=== PATIENT | male | born 1995 | race Caucasian/White ===

== ENCOUNTER 2016-12-30 15:17 | Inpatient (IN) | payer BC ==
[~2016-12-30] VITALS: Ht 182.9 cm; Wt 83.5 kg
[2016-12-30] MEDS ORDERED: IV NORMAL SALINE 1000ML BAG 1,000 ML IV ONE ×2 (15:45→17:30)
[2016-12-30] MEDS ORDERED: 0.9 % SODIUM CHLORIDE 10 ML DISP.SYRIN. IV PRN (15:45)
[2016-12-30] MEDS ORDERED: ONDANSETRON PF 4 MG/2 ML VIAL. IV PRN ×3 (15:45→19:00)
[2016-12-30] MEDS ORDERED: MORPHINE SULFATE 2 MG/ML DISP.SYRIN. IV ONE (15:45)
[2016-12-30] MEDS ORDERED: ONDANSETRON PF 4 MG/2 ML VIAL. ONE (16:06)
[2016-12-30] MEDS ORDERED: MORPHINE SULFATE 2 MG/ML DISP.SYRIN. ONE (16:06)
[2016-12-30 16:08] LABS: BASO % 0 % (0-3); EOS % 0 % (0-3); HEMATOCRIT 52.7 % (39.0-53.0); HEMOGLOBIN 18.2 g/dL (13.0-17.5); LYMPH # 1.6 x10^3/uL (1.0-4.8); LYMPH % 9 % (24-48); MEAN CORPUSCULAR HEMOGLOBIN 29 pg (25-35); MEAN CORPUSCULAR HGB CONC 35 g/dL (31-37); MEAN CORPUSCULAR VOLUME 84 fL (79-100); MONO % 9 % (0-9); NEUT % 82 % (31-73); PLATELET COUNT 346 x10^3/uL (140-400); RED BLOOD COUNT 6.25 x10^6/uL (4.30-5.70); RED CELL DISTRIBUTION WIDTH 13.2 % (11.5-14.5); WHITE BLOOD COUNT 17.5 x10^3/uL (4.0-11.0)
[2016-12-30 16:20] LABS: CALCIUM 9.8 mg/dL (8.5-10.1); CREATININE 1.2 mg/dL (0.7-1.3); GFR 77.2; POTASSIUM 3.4 mmol/L (3.5-5.1)
[2016-12-30 16:26] LABS: ALBUMIN 3.5 g/dL (3.4-5.0); ALBUMIN/GLOBULIN RATIO 0.7 (1.0-1.7); TOTAL BILIRUBIN 0.6 mg/dL (0.2-1.0); TOTAL PROTEIN 8.7 g/dL (6.4-8.2)
--- NOTE | 2016-12-30 17:14 | PHYS DOC ---
Past Medical History Past Medical History: No Pertinent History Past Surgical History: No Surgical History Alcohol Use: None Drug Use: Marijuana Adult General Chief Complaint Chief Complaint: OTHER COMPLAINTS HPI HPI Patient is a 21 year old MALE who presents with FEVERS UP TO 101, and sores in genital area now spreading on body, Tried out patient antibiotics and Valtrex and now worse Review of Systems Review of Systems Constitutional: YES fever or chills [] Eyes: Denies change in visual acuity, redness, or eye pain [] HENT: severe sore throat with "sores" Respiratory: cough with yellow phlem Cardiovascular: No additional information not addressed in HPI [] GI: Denies abdominal pain, nausea, vomiting, bloody stools or diarrhea [] : Denies dysuria or hematuria [] Musculoskeletal: Denies back pain or joint pain [] Integument: Denies rash or skin lesions [] Neurologic: Denies headache, focal weakness or sensory changes [] Endocrine: Denies polyuria or polydipsia [] Current Medications Current Medications Current Medications Medications (Trade) Dose Ordered Sig/Gabriel Start Time Stop Time Status Last Admin Dose Admin Ceftriaxone Sodium 50 ml @ 100 mls/hr 1X ONCE 12/30/16 17:15 12/30/16 17:44 DC 12/30/16 17:46 100 MLS/HR Morphine Sulfate 2 mg STK-MED ONCE 12/30/16 16:06 12/30/16 16:07 DC Ondansetron HCl (Zofran) 4 mg STK-MED ONCE 12/30/16 16:06 12/30/16 16:07 DC Sodium Chloride 1,000 ml @ 1,000 mls/hr 1X ONCE 12/30/16 17:30 12/30/16 18:29 DC 12/30/16 17:46 1,000 MLS/HR Sodium Chloride (Normal Saline Flush) 3 ml QSHIFT PRN 12/30/16 15:45 Vancomycin HCl 2 gm/Sodium Chloride 500 ml @ 250 mls/hr 1X ONCE 12/30/16 17:15 12/30/16 19:14 DC Allergies Allergies Allergies Coded Allergies Type Severity Reaction Last Updated Verified No Known Drug Allergies 12/30/16 No Physical Exam Physical Exam Constitutional: Well developed, well nourished, no acute distress, non-toxic appearance. [] HENT: Normocephalic, atraumatic, bilateral external ears normal, oropharynx moist, no oral exudates, nose normal. [] Eyes: PERRLA, EOMI, conjunctiva normal, no discharge. [] Neck: Normal range of motion, no tenderness, supple, no stridor. [] Cardiovascular:Heart rate regular rhythm, no murmur [] Lungs & Thorax: Bilateral breath sounds clear to auscultation [] Abdomen: Bowel sounds normal, soft, no tenderness, no masses, no pulsatile masses. [] Skin: Warm, dry, no erythema, no rash. [] Back: No tenderness, no CVA tenderness. [] Extremities: No tenderness, no cyanosis, no clubbing, ROM intact, no edema. [] Neurologic: Alert and oriented X 3, normal motor function, normal sensory function, no focal deficits noted. [] Psychologic: Affect normal, judgement normal, mood normal. [] Current Patient Data Vital Signs Vital Signs Date Time Temp Pulse Resp B/P (MAP) Pulse Ox O2 Delivery O2 Flow Rate FiO2 12/30/16 15:30 113 18 153/85 (107) 97 Room Air 12/30/16 15:20 98.8 98.8 Lab Values Laboratory Tests Test 12/30/16 15:55 12/30/16 17:10 White Blood Count 17.5 x10^3/uL (4.0-11.0) H Red Blood Count 6.25 x10^6/uL (4.30-5.70) H Hemoglobin 18.2 g/dL (13.0-17.5) H Hematocrit 52.7 % (39.0-53.0) Mean Corpuscular Volume 84 fL (79-100) Mean Corpuscular Hemoglobin 29 pg (25-35) Mean Corpuscular Hemoglobin Concent 35 g/dL (31-37) Red Cell Distribution Width 13.2 % (11.5-14.5) Platelet Count 346 x10^3/uL (140-400) Neutrophils (%) (Auto) 82 % (31-73) H Lymphocytes (%) (Auto) 9 % (24-48) L Monocytes (%) (Auto) 9 % (0-9) Eosinophils (%) (Auto) 0 % (0-3) Basophils (%) (Auto) 0 % (0-3) Neutrophils # (Auto) 14.3 x10^3uL (1.8-7.7) H Lymphocytes # (Auto) 1.6 x10^3/uL (1.0-4.8) Monocytes # (Auto) 1.5 x10^3/uL (0.0-1.1) H Eosinophils # (Auto) 0.0 x10^3/uL (0.0-0.7) Basophils # (Auto) 0.0 x10^3/uL (0.0-0.2) Sodium Level 135 mmol/L (136-145) L Potassium Level 3.4 mmol/L (3.5-5.1) L Chloride Level 95 mmol/L (98-107) L Carbon Dioxide Level 20 mmol/L (21-32) L Anion Gap 20 (6-14) H Blood Urea Nitrogen 11 mg/dL (8-26) Creatinine 1.2 mg/dL (0.7-1.3) Estimated GFR (Cockcroft-Gault) 77.2 BUN/Creatinine Ratio 9 (6-20) Glucose Level 99 mg/dL (70-99) Lactic Acid Level 2.5 mmol/L (0.4-2.0) H Calcium Level 9.8 mg/dL (8.5-10.1) Total Bilirubin 0.6 mg/dL (0.2-1.0) Aspartate Amino Transferase (AST) 13 U/L (15-37) L Alanine Aminotransferase (ALT) 15 U/L (16-63) L Alkaline Phosphatase 79 U/L (46-116) Total Protein 8.7 g/dL (6.4-8.2) H Albumin 3.5 g/dL (3.4-5.0) Albumin/Globulin Ratio 0.7 (1.0-1.7) L Urine Collection Type Void Urine Color Mary Ann Urine Clarity Clear Urine pH 6.0 Urine Specific [place] >=1.030 Urine Protein 30 mg/dL (NEG-TRACE) Urine Glucose (UA) Negative mg/dL (NEG) Urine Ketones (Stick) >=80 mg/dL (NEG) Urine Blood Negative (NEG) Urine Nitrite Negative (NEG) Urine Bilirubin Moderate (NEG) Urine Urobilinogen Dipstick 1.0 mg/dL (0.2 mg/dL) Urine Leukocyte Esterase Small (NEG) Urine RBC 0 /HPF (0-2) Urine WBC 1-4 /HPF (0-4) Urine Squamous Epithelial Cells Occ /LPF Urine Bacteria 0 /HPF (0-FEW) Urine Hyaline Casts Few /HPF Urine Mucus Marked /LPF Laboratory Tests 12/30/16 15:55 Laboratory Tests 12/30/16 15:55 EKG EKG [] Radiology/Procedures Radiology/Procedures [] Impressions: Scrotal Cellulitis, Genital Herpes Possible MRSA Course & Med Decision Making Course & Med Decision Making Pertinent Labs and Imaging studies reviewed. (See chart for details) [] Dragon Disclaimer Dragon Disclaimer This electronic medical record was generated, in whole or in part, using a voice recognition dictation system. Departure Departure Referrals: EDUARDO SAMPSON MD (PCP) DANICA CHAUDHARY MD Dec 30, 2016 17:14
[2016-12-30] MEDS ORDERED: VANCOMYCIN 2 GM in IV NORMAL SALINE 500ML BAG 500 ML IV ONE (17:15)
[2016-12-30 17:29] LABS: BILIRUBIN,URINE MODERATE (NEG); GLUCOSE,URINE NEGATIVE (NEG); NITRITE,URINE NEGATIVE (NEG); PROTEIN,URINE 30 mg/dL (NEG-TRACE)
[2016-12-30 17:39] LABS: BACTERIA,URINE 0 /HPF (0-FEW); RBC,URINE 0 /HPF (0-2); SQUAMOUS EPITHELIAL CELL,UR OCC /LPF
[2016-12-30] MEDS ORDERED: PIPERACILLIN/TAZOBACTAM 4.5 GM in IV NORMAL SALINE 100ML 100 ML IV ONE (18:00)
[2016-12-30] MEDS: MORPHINE SULFATE 2 MG/ML DISP.SYRIN. IV PRN ×2 (18:19→21:06)
--- NOTE | 2016-12-30 18:57 | PDOC1 ---
History and Physical Current Problem List Problem List Problems Medical Problems: (1) Cellulitis of scrotum Status: Acute (2) Herpes genitalia Status: Acute (3) Leukocytosis Status: Acute Current Medications Current Medications Current Medications Medications (Trade) Dose Ordered Sig/Gabriel Start Time Stop Time Status Last Admin Dose Admin Ceftriaxone Sodium 50 ml @ 100 mls/hr 1X ONCE 12/30/16 17:15 12/30/16 17:44 DC 12/30/16 17:46 100 MLS/HR Morphine Sulfate 2 mg PRN Q2HR PRN 12/30/16 18:00 12/31/16 17:59 12/30/16 18:19 2 MG Ondansetron HCl (Zofran) 4 mg PRN Q8HRS PRN 12/30/16 18:00 12/31/16 17:59 Piperacillin Sod/ Tazobactam Sod 4.5 gm/Sodium Chloride 100 ml @ 200 mls/hr Q6HRS 12/31/16 00:00 Sodium Chloride 1,000 ml @ 1,000 mls/hr 1X ONCE 12/30/16 17:30 12/30/16 18:29 DC 12/30/16 17:46 1,000 MLS/HR Sodium Chloride (Normal Saline Flush) 3 ml QSHIFT PRN 12/30/16 15:45 Vancomycin HCl (Vanco Per Pharmacy) 1 each PRN DAILY PRN 12/30/16 18:00 Vancomycin HCl 2 gm/Sodium Chloride 500 ml @ 250 mls/hr 1X ONCE 12/30/16 17:15 12/30/16 19:14 Allergies Allergies Allergies Coded Allergies Type Severity Reaction Last Updated Verified No Known Drug Allergies 12/30/16 No ROS Review of System CONSTITUTIONAL: No fever or chills EYES: No recent changes SKIN: No rash or itching CARDIOVASCULAR: No chest pain, syncope, palpitations, or edema RESPIRATORY: No SOB or cough GASTROINTESTINAL: No nausea, vomiting or abdominal pain NEUROLOGICAL: No headaches or weakness ENDOCRINE: No cold or heat intolerance GENITOURINARY: No urgency or frequency of urination MUSCULOSKELETAL: No back pain or joint pain LYMPHATICS: No enlarged lymph nodes PSYCHIATRIC: No anxiety or depression Physical Exam Physical Exam GEN.: No apparent distress. Alert and oriented. HEENT: Head is normocephalic, atraumatic NECK: Supple. no JVD LUNGS: Clear to auscultation. normal airflow. HEART: RRR, S1, S2 present. Peripheral pulses intact ABDOMEN: Soft, nontender. Positive bowel sounds. genitalia: ulcers on scrotum both side, with central dark color, erythema surrounding it. EXTREMITIES: Without any cyanosis. NEUROLOGIC: Normal speech, normal tone PSYCHIATRIC: Normal affect, normal mood. Mouth: numerous ulceration on palate Vitals Vitals Vital Signs Date Time Temp Pulse Resp B/P (MAP) Pulse Ox O2 Delivery O2 Flow Rate FiO2 12/30/16 18:00 105 18 118/62 (80) 98 12/30/16 15:30 Room Air 12/30/16 15:20 98.8 98.8 Labs Labs Laboratory Tests Test 12/30/16 15:55 12/30/16 17:10 White Blood Count 17.5 x10^3/uL (4.0-11.0) Red Blood Count 6.25 x10^6/uL (4.30-5.70) Hemoglobin 18.2 g/dL (13.0-17.5) Hematocrit 52.7 % (39.0-53.0) Mean Corpuscular Volume 84 fL (79-100) Mean Corpuscular Hemoglobin 29 pg (25-35) Mean Corpuscular Hemoglobin Concent 35 g/dL (31-37) Red Cell Distribution Width 13.2 % (11.5-14.5) Platelet Count 346 x10^3/uL (140-400) Neutrophils (%) (Auto) 82 % (31-73) Lymphocytes (%) (Auto) 9 % (24-48) Monocytes (%) (Auto) 9 % (0-9) Eosinophils (%) (Auto) 0 % (0-3) Basophils (%) (Auto) 0 % (0-3) Neutrophils # (Auto) 14.3 x10^3uL (1.8-7.7) Lymphocytes # (Auto) 1.6 x10^3/uL (1.0-4.8) Monocytes # (Auto) 1.5 x10^3/uL (0.0-1.1) Eosinophils # (Auto) 0.0 x10^3/uL (0.0-0.7) Basophils # (Auto) 0.0 x10^3/uL (0.0-0.2) Sodium Level 135 mmol/L (136-145) Potassium Level 3.4 mmol/L (3.5-5.1) Chloride Level 95 mmol/L (98-107) Carbon Dioxide Level 20 mmol/L (21-32) Anion Gap 20 (6-14) Blood Urea Nitrogen 11 mg/dL (8-26) Creatinine 1.2 mg/dL (0.7-1.3) Estimated GFR (Cockcroft-Gault) 77.2 BUN/Creatinine Ratio 9 (6-20) Glucose Level 99 mg/dL (70-99) Lactic Acid Level 2.5 mmol/L (0.4-2.0) Calcium Level 9.8 mg/dL (8.5-10.1) Total Bilirubin 0.6 mg/dL (0.2-1.0) Aspartate Amino Transf (AST/SGOT) 13 U/L (15-37) Alanine Aminotransferase (ALT/SGPT) 15 U/L (16-63) Alkaline Phosphatase 79 U/L (46-116) Total Protein 8.7 g/dL (6.4-8.2) Albumin 3.5 g/dL (3.4-5.0) Albumin/Globulin Ratio 0.7 (1.0-1.7) Urine Collection Type Void Urine Color Mary Ann Urine Clarity Clear Urine pH 6.0 Urine Specific [place] >=1.030 Urine Protein 30 mg/dL (NEG-TRACE) Urine Glucose (UA) Negative mg/dL (NEG) Urine Ketones (Stick) >=80 mg/dL (NEG) Urine Blood Negative (NEG) Urine Nitrite Negative (NEG) Urine Bilirubin Moderate (NEG) Urine Urobilinogen Dipstick 1.0 mg/dL (0.2 mg/dL) Urine Leukocyte Esterase Small (NEG) Urine RBC 0 /HPF (0-2) Urine WBC 1-4 /HPF (0-4) Urine Squamous Epithelial Cells Occ /LPF Urine Bacteria 0 /HPF (0-FEW) Urine Hyaline Casts Few /HPF Urine Mucus Marked /LPF Laboratory Tests Test 12/30/16 15:55 12/30/16 17:10 White Blood Count 17.5 x10^3/uL (4.0-11.0) Red Blood Count 6.25 x10^6/uL (4.30-5.70) Hemoglobin 18.2 g/dL (13.0-17.5) Hematocrit 52.7 % (39.0-53.0) Mean Corpuscular Volume 84 fL (79-100) Mean Corpuscular Hemoglobin 29 pg (25-35) Mean Corpuscular Hemoglobin Concent 35 g/dL (31-37) Red Cell Distribution Width 13.2 % (11.5-14.5) Platelet Count 346 x10^3/uL (140-400) Neutrophils (%) (Auto) 82 % (31-73) Lymphocytes (%) (Auto) 9 % (24-48) Monocytes (%) (Auto) 9 % (0-9) Eosinophils (%) (Auto) 0 % (0-3) Basophils (%) (Auto) 0 % (0-3) Neutrophils # (Auto) 14.3 x10^3uL (1.8-7.7) Lymphocytes # (Auto) 1.6 x10^3/uL (1.0-4.8) Monocytes # (Auto) 1.5 x10^3/uL (0.0-1.1) Eosinophils # (Auto) 0.0 x10^3/uL (0.0-0.7) Basophils # (Auto) 0.0 x10^3/uL (0.0-0.2) Sodium Level 135 mmol/L (136-145) Potassium Level 3.4 mmol/L (3.5-5.1) Chloride Level 95 mmol/L (98-107) Carbon Dioxide Level 20 mmol/L (21-32) Anion Gap 20 (6-14) Blood Urea Nitrogen 11 mg/dL (8-26) Creatinine 1.2 mg/dL (0.7-1.3) Estimated GFR (Cockcroft-Gault) 77.2 BUN/Creatinine Ratio 9 (6-20) Glucose Level 99 mg/dL (70-99) Lactic Acid Level 2.5 mmol/L (0.4-2.0) Calcium Level 9.8 mg/dL (8.5-10.1) Total Bilirubin 0.6 mg/dL (0.2-1.0) Aspartate Amino Transf (AST/SGOT) 13 U/L (15-37) Alanine Aminotransferase (ALT/SGPT) 15 U/L (16-63) Alkaline Phosphatase 79 U/L (46-116) Total Protein 8.7 g/dL (6.4-8.2) Albumin 3.5 g/dL (3.4-5.0) Albumin/Globulin Ratio 0.7 (1.0-1.7) Urine Collection Type Void Urine Color Mary Ann Urine Clarity Clear Urine pH 6.0 Urine Specific [place] >=1.030 Urine Protein 30 mg/dL (NEG-TRACE) Urine Glucose (UA) Negative mg/dL (NEG) Urine Ketones (Stick) >=80 mg/dL (NEG) Urine Blood Negative (NEG) Urine Nitrite Negative (NEG) Urine Bilirubin Moderate (NEG) Urine Urobilinogen Dipstick 1.0 mg/dL (0.2 mg/dL) Urine Leukocyte Esterase Small (NEG) Urine RBC 0 /HPF (0-2) Urine WBC 1-4 /HPF (0-4) Urine Squamous Epithelial Cells Occ /LPF Urine Bacteria 0 /HPF (0-FEW) Urine Hyaline Casts Few /HPF Urine Mucus Marked /LPF VTE Prophylaxis Ordered VTE Prophylaxis Devices: Contraindicated VTE Pharmacological Prophylaxi: Contraindicated ANJELICA SUNG MD Dec 30, 2016 18:57
[2016-12-30] MEDS ORDERED: ALBUTEROL SULFATE 2.5 MG/3 ML NEBU. NEB PRN (19:00)
[2016-12-30] MEDS ORDERED: hydrALAZINE 20 MG/ML VIAL. IVP PRN (19:00)
[2016-12-30] MEDS ORDERED: HYDROmorphone 2 MG/ML VIAL IM ONE (19:30)
[2016-12-30 20:15] VITALS: BP 117/73
[2016-12-30] MEDS: HYDROcodone/APAP 5/325MG 1 TAB TABLET PO PRN (21:10)
[2016-12-30] MEDS: VANCOMYCIN PER PHARMACY MC PRN (21:32)
[2016-12-30 23:22] VITALS: BP 125/76
[2016-12-30] MEDS ORDERED: METR500T8 PO (23:37)
[2016-12-30] MEDS ORDERED: DOXY100C2 PO (23:37)
[2016-12-30] MEDS ORDERED: VALA10005 PO (23:37)
[2016-12-31] MEDS: MORPHINE SULFATE 2 MG/ML DISP.SYRIN. IV PRN ×4 (00:13→08:15)
[2016-12-31] MEDS: PIPERACILLIN/TAZOBACTAM 4.5 GM in IV NORMAL SALINE 100ML 100 ML IV SCH ×5 (00:15→23:22)
[2016-12-31] MEDS: IV NORMAL SALINE 1000ML BAG 1,000 ML IV SCH ×2 (00:18→13:35)
--- NOTE | 2016-12-31 01:22 | HP ---
ADMIT DATE: 12/30/2016 CHIEF COMPLAINT: Multiple sores on the body. HISTORY OF PRESENT ILLNESS: A 21-year-old old male patient with no prior significant medical problem presented to the ER with complaints of fever and multiple sores on his body. The patient recently visited [place]; however, he denies any outside activity. He was staying inside and denies any sick contacts or any other travel history of ticks or mite bites. The patient noted to have vesiculopapular lesions on his scrotal area which has been turning colors. Center of the lesion has been turned to black with surrounding erythema and redness and pain. He had 3 or 4 lesions in the scrotal area including some redness in his glans penis region. The patient also noted to have increased mouth sores which have been painful for last couple of days. He presented to the ER with complaints of intractable pain. The patient tried some oral antibiotics outside the hospital, however they did not improve. In fact, his symptoms are getting worse. He denies any sexual contact with unknown people and he has been having intercourse with one single person for the last one year and last sexual intercourse was 2 weeks ago. His partner is very healthy and no illness noted. PAST MEDICAL HISTORY: None. PAST SURGICAL HISTORY: None. PERSONAL HISTORY: No smokes. Occasional THC. No alcohol use. No drug abuse. FAMILY HISTORY: Denies any cancers or any significant medical conditions. REVIEW OF SYSTEMS: and PHYSICAL EXAM: Pl see my electronic HP LABORATORY DATA: CBC: WBC is 17.5, hemoglobin is 18.2, MCV is 84, MCHC 35, platelets 346. Chemistry: Sodium 135, potassium 3.4, chloride is 95, carbon dioxide 20, gap is 20, bilirubin is 0.6, AST 13, ALT 15, lactic acid 2.5. Urine, specific gravity 1.030, nitrites negative, leukocyte esterase is small, bacteria few. IMAGING STUDIES: Chest x-ray preliminary report pending. ASSESSMENT: 1. Multiple vesiculopapular rashes with cellulitis on scrotum and oral mucosa 2. Rash on glans penis. 3. Hypokalemia. 4. Leukocytosis. 5. Metabolic acidosis. 6. Suspected genital herpes. 7. Dehydration. PLAN: 1. He has been receiving broad-spectrum antibiotics. Restart vancomycin and Zosyn. We will continue antibiotics for now and consult Infectious Disease. 2. Blood cultures, urine cultures obtained in the ER. Pain has been not controlled. He has been placed on 2 mg IV morphine q. 2 hours with Lortab p.r.n. later changed to Dilaudid. 3. Chest x-ray is pending. 4. Continue IV hydration at 100 mL/hour. 5. Plan discussed with patient and mother at this time. He will continue antibiotics. ANJELICA SUNG MD DR: THERESA/christoph JOB#: [id number] / [id number] OLIVA
[2016-12-31] MEDS ORDERED: LIDOCAINE 2% VISCOUS 15 ML SOLUTION. SWSW PRN (01:30)
[2016-12-31 03:30] VITALS: BP 117/71
[2016-12-31] MEDS: HYDROcodone/APAP 5/325MG 1 TAB TABLET PO PRN ×3 (04:22→20:57)
[2016-12-31] MEDS: VANCOMYCIN 1.25 GM in IV NORMAL SALINE 250ML 250 ML IV SCH ×3 (04:26→21:00)
[2016-12-31 05:12] LABS: BASO # 0.1 x10^3/uL (0.0-0.2); BASO % 1 % (0-3); EOS % 0 % (0-3); HEMATOCRIT 45.7 % (39.0-53.0); HEMOGLOBIN 15.1 g/dL (13.0-17.5); LYMPH # 2.5 x10^3/uL (1.0-4.8); LYMPH % 18 % (24-48); MEAN CORPUSCULAR HEMOGLOBIN 28 pg (25-35); MEAN CORPUSCULAR HGB CONC 33 g/dL (31-37); MEAN CORPUSCULAR VOLUME 86 fL (79-100); MONO % 10 % (0-9); NEUT % 72 % (31-73); PLATELET COUNT 276 x10^3/uL (140-400); RED BLOOD COUNT 5.32 x10^6/uL (4.30-5.70); RED CELL DISTRIBUTION WIDTH 13.1 % (11.5-14.5); WHITE BLOOD COUNT 14.3 x10^3/uL (4.0-11.0)
[2016-12-31 05:43] LABS: CALCIUM 8.2 mg/dL (8.5-10.1); CREATININE 1.1 mg/dL (0.7-1.3); GFR 85.3; POTASSIUM 3.2 mmol/L (3.5-5.1)
[2016-12-31 07:00] VITALS: BP 129/74
[2016-12-31] MEDS ORDERED: ACETAMINOPHEN 650 MG SUPP.RECT. PR PRN (08:45)
[2016-12-31] MEDS: HYDROmorphone 2 MG/ML VIAL IV PRN ×8 (08:53→22:59)
[2016-12-31] MEDS: ACETAMINOPHEN 325 MG TABLET. PO PRN ×3 (08:58→23:07)
--- NOTE | 2016-12-31 09:04 | RAD ---
EXAM: Chest 2 views. HISTORY: Weakness, dizziness, fever. COMPARISON: None. FINDINGS: Frontal and lateral views of the chest are obtained. There are no confluent infiltrates. There is no pneumothorax or pleural effusion. The heart is not enlarged. IMPRESSION: 1. No confluent infiltrates.
[2016-12-31 11:00] VITALS: BP 124/74
[2016-12-31 11:13] LABS: NEGATIVE OBC STREP NEG; POSITIVE OBC STREP POS
[2016-12-31] MEDS ORDERED: POTASSIUM CHLORIDE 40 MEQ in IV DEXTROSE 5% 1,000 ML IV ONE (12:00)
--- NOTE | 2016-12-31 12:58 | PDOC ---
Infectious Disease Note Vital Sign Vital Signs Vital Signs Date Time Temp Pulse Resp B/P (MAP) Pulse Ox O2 Delivery O2 Flow Rate FiO2 12/31/16 11:40 16 Room Air 12/31/16 11:00 98.8 98 124/74 (91) 93 98.8 Labs Lab Laboratory Tests Test 12/30/16 15:55 12/30/16 17:10 12/30/16 17:27 12/31/16 00:05 White Blood Count 17.5 x10^3/uL (4.0-11.0) Red Blood Count 6.25 x10^6/uL (4.30-5.70) Hemoglobin 18.2 g/dL (13.0-17.5) Hematocrit 52.7 % (39.0-53.0) Mean Corpuscular Volume 84 fL (79-100) Mean Corpuscular Hemoglobin 29 pg (25-35) Mean Corpuscular Hemoglobin Concent 35 g/dL (31-37) Red Cell Distribution Width 13.2 % (11.5-14.5) Platelet Count 346 x10^3/uL (140-400) Neutrophils (%) (Auto) 82 % (31-73) Lymphocytes (%) (Auto) 9 % (24-48) Monocytes (%) (Auto) 9 % (0-9) Eosinophils (%) (Auto) 0 % (0-3) Basophils (%) (Auto) 0 % (0-3) Neutrophils # (Auto) 14.3 x10^3uL (1.8-7.7) Lymphocytes # (Auto) 1.6 x10^3/uL (1.0-4.8) Monocytes # (Auto) 1.5 x10^3/uL (0.0-1.1) Eosinophils # (Auto) 0.0 x10^3/uL (0.0-0.7) Basophils # (Auto) 0.0 x10^3/uL (0.0-0.2) Sodium Level 135 mmol/L (136-145) Potassium Level 3.4 mmol/L (3.5-5.1) Chloride Level 95 mmol/L (98-107) Carbon Dioxide Level 20 mmol/L (21-32) Anion Gap 20 (6-14) Blood Urea Nitrogen 11 mg/dL (8-26) Creatinine 1.2 mg/dL (0.7-1.3) Estimated GFR (Cockcroft-Gault) 77.2 BUN/Creatinine Ratio 9 (6-20) Glucose Level 99 mg/dL (70-99) Lactic Acid Level 2.5 mmol/L (0.4-2.0) 0.9 mmol/L (0.4-2.0) Calcium Level 9.8 mg/dL (8.5-10.1) Total Bilirubin 0.6 mg/dL (0.2-1.0) Aspartate Amino Transf (AST/SGOT) 13 U/L (15-37) Alanine Aminotransferase (ALT/SGPT) 15 U/L (16-63) Alkaline Phosphatase 79 U/L (46-116) Total Protein 8.7 g/dL (6.4-8.2) Albumin 3.5 g/dL (3.4-5.0) Albumin/Globulin Ratio 0.7 (1.0-1.7) Urine Collection Type Void Urine Color Mary Ann Urine Clarity Clear Urine pH 6.0 Urine Specific [place] >=1.030 Urine Protein 30 mg/dL (NEG-TRACE) Urine Glucose (UA) Negative mg/dL (NEG) Urine Ketones (Stick) >=80 mg/dL (NEG) Urine Blood Negative (NEG) Urine Nitrite Negative (NEG) Urine Bilirubin Moderate (NEG) Urine Urobilinogen Dipstick 1.0 mg/dL (0.2 mg/dL) Urine Leukocyte Esterase Small (NEG) Urine RBC 0 /HPF (0-2) Urine WBC 1-4 /HPF (0-4) Urine Squamous Epithelial Cells Occ /LPF Urine Bacteria 0 /HPF (0-FEW) Urine Hyaline Casts Few /HPF Urine Mucus Marked /LPF Group A Streptococcus Rapid Negative (NEGATIVE) Test 12/31/16 05:00 White Blood Count 14.3 x10^3/uL (4.0-11.0) Red Blood Count 5.32 x10^6/uL (4.30-5.70) Hemoglobin 15.1 g/dL (13.0-17.5) Hematocrit 45.7 % (39.0-53.0) Mean Corpuscular Volume 86 fL (79-100) Mean Corpuscular Hemoglobin 28 pg (25-35) Mean Corpuscular Hemoglobin Concent 33 g/dL (31-37) Red Cell Distribution Width 13.1 % (11.5-14.5) Platelet Count 276 x10^3/uL (140-400) Neutrophils (%) (Auto) 72 % (31-73) Lymphocytes (%) (Auto) 18 % (24-48) Monocytes (%) (Auto) 10 % (0-9) Eosinophils (%) (Auto) 0 % (0-3) Basophils (%) (Auto) 1 % (0-3) Neutrophils # (Auto) 10.3 x10^3uL (1.8-7.7) Lymphocytes # (Auto) 2.5 x10^3/uL (1.0-4.8) Monocytes # (Auto) 1.4 x10^3/uL (0.0-1.1) Eosinophils # (Auto) 0.1 x10^3/uL (0.0-0.7) Basophils # (Auto) 0.1 x10^3/uL (0.0-0.2) Sodium Level 140 mmol/L (136-145) Potassium Level 3.2 mmol/L (3.5-5.1) Chloride Level 102 mmol/L (98-107) Carbon Dioxide Level 25 mmol/L (21-32) Anion Gap 13 (6-14) Blood Urea Nitrogen 10 mg/dL (8-26) Creatinine 1.1 mg/dL (0.7-1.3) Estimated GFR (Cockcroft-Gault) 85.3 Glucose Level 69 mg/dL (70-99) Calcium Level 8.2 mg/dL (8.5-10.1) Objective Assessment Fever Leukocytosis Lactic acidosis Ulcerations of glans penis and eschar wounds of scrotum and left thigh Herpetic lesions oral cavity & pharynx Plan Plan of Care vanc and Zosyn Add antiviral agent Await HSV PCR and cultures Check urine chlamydia and gonorrhea Reportedly HIV status neg, donates plasma. Monitor response and labs Pain management per primary Thank you Attending Co-Sign The patient was seen and interviewed as well as examined at the bedside. The chart was reviewed. The case was discussed. Agree with the plan of care. MICHELLE GARCIA APRN Dec 31, 2016 12:58 ROSAURA NEWSOME MD Dec 31, 2016 16:22
[2016-12-31 15:00] VITALS: BP 135/71
[2016-12-31] MEDS: valACYclovir 500 MG TABLET. PO SCH ×2 (16:29→20:59)
[2016-12-31] MEDS: AMINO AC 3%/ELECTROLYTE/GLYCER 1,000 ML IV SCH (16:33)
--- NOTE | 2016-12-31 17:19 | PDOC ---
PROGRESS NOTES Chief Complaint Chief Complaint cc: cellulitis A/P 1. Multiple vesiculopapular rashes with cellulitis on scrotum and oral mucosa : ON Zosyn and Vancomycin, work up pending, ID following, pl see orderds 2. Rash on glans penis. 3. Hypokalemia.: replaced, continue iv hydration, 4. Leukocytosis.: monitor 5. Intractable pain: started on IV Dilaudid prn , avoid co2 narcosis 6. Suspected genital herpes. 7. Dehydration. decreased oral intake due to pain, start on PPN History of Present Illness History of Present Illness pain 10, in mouth and groin region, fevers Vitals Vitals Vital Signs Date Time Temp Pulse Resp B/P (MAP) Pulse Ox O2 Delivery O2 Flow Rate FiO2 12/31/16 16:16 16 Room Air 12/31/16 15:00 100.0 102 135/71 (92) 94 100.0 Physical Exam General: Alert, Oriented X3 Heart: Normal S1 Lungs: Clear Abdomen: Normal bowel sounds, Soft Extremities: No clubbing Labs LABS Laboratory Tests Test 12/30/16 17:27 12/31/16 00:05 12/31/16 05:00 Group A Streptococcus Rapid Negative (NEGATIVE) Lactic Acid Level 0.9 mmol/L (0.4-2.0) White Blood Count 14.3 x10^3/uL (4.0-11.0) Red Blood Count 5.32 x10^6/uL (4.30-5.70) Hemoglobin 15.1 g/dL (13.0-17.5) Hematocrit 45.7 % (39.0-53.0) Mean Corpuscular Volume 86 fL (79-100) Mean Corpuscular Hemoglobin 28 pg (25-35) Mean Corpuscular Hemoglobin Concent 33 g/dL (31-37) Red Cell Distribution Width 13.1 % (11.5-14.5) Platelet Count 276 x10^3/uL (140-400) Neutrophils (%) (Auto) 72 % (31-73) Lymphocytes (%) (Auto) 18 % (24-48) Monocytes (%) (Auto) 10 % (0-9) Eosinophils (%) (Auto) 0 % (0-3) Basophils (%) (Auto) 1 % (0-3) Neutrophils # (Auto) 10.3 x10^3uL (1.8-7.7) Lymphocytes # (Auto) 2.5 x10^3/uL (1.0-4.8) Monocytes # (Auto) 1.4 x10^3/uL (0.0-1.1) Eosinophils # (Auto) 0.1 x10^3/uL (0.0-0.7) Basophils # (Auto) 0.1 x10^3/uL (0.0-0.2) Sodium Level 140 mmol/L (136-145) Potassium Level 3.2 mmol/L (3.5-5.1) Chloride Level 102 mmol/L (98-107) Carbon Dioxide Level 25 mmol/L (21-32) Anion Gap 13 (6-14) Blood Urea Nitrogen 10 mg/dL (8-26) Creatinine 1.1 mg/dL (0.7-1.3) Estimated GFR (Cockcroft-Gault) 85.3 Glucose Level 69 mg/dL (70-99) Calcium Level 8.2 mg/dL (8.5-10.1) Assessment and Plan Assessmemt and Plan Problems Medical Problems: (1) Cellulitis of scrotum Status: Acute (2) Herpes genitalia Status: Acute (3) Leukocytosis Status: Acute Problems: Comment Review of Relevant I have reviewed the following items nicole (where applicable) has been applied. Labs Laboratory Tests Test 12/30/16 15:55 12/30/16 17:10 12/30/16 17:27 12/31/16 00:05 White Blood Count 17.5 x10^3/uL (4.0-11.0) Red Blood Count 6.25 x10^6/uL (4.30-5.70) Hemoglobin 18.2 g/dL (13.0-17.5) Hematocrit 52.7 % (39.0-53.0) Mean Corpuscular Volume 84 fL (79-100) Mean Corpuscular Hemoglobin 29 pg (25-35) Mean Corpuscular Hemoglobin Concent 35 g/dL (31-37) Red Cell Distribution Width 13.2 % (11.5-14.5) Platelet Count 346 x10^3/uL (140-400) Neutrophils (%) (Auto) 82 % (31-73) Lymphocytes (%) (Auto) 9 % (24-48) Monocytes (%) (Auto) 9 % (0-9) Eosinophils (%) (Auto) 0 % (0-3) Basophils (%) (Auto) 0 % (0-3) Neutrophils # (Auto) 14.3 x10^3uL (1.8-7.7) Lymphocytes # (Auto) 1.6 x10^3/uL (1.0-4.8) Monocytes # (Auto) 1.5 x10^3/uL (0.0-1.1) Eosinophils # (Auto) 0.0 x10^3/uL (0.0-0.7) Basophils # (Auto) 0.0 x10^3/uL (0.0-0.2) Sodium Level 135 mmol/L (136-145) Potassium Level 3.4 mmol/L (3.5-5.1) Chloride Level 95 mmol/L (98-107) Carbon Dioxide Level 20 mmol/L (21-32) Anion Gap 20 (6-14) Blood Urea Nitrogen 11 mg/dL (8-26) Creatinine 1.2 mg/dL (0.7-1.3) Estimated GFR (Cockcroft-Gault) 77.2 BUN/Creatinine Ratio 9 (6-20) Glucose Level 99 mg/dL (70-99) Lactic Acid Level 2.5 mmol/L (0.4-2.0) 0.9 mmol/L (0.4-2.0) Calcium Level 9.8 mg/dL (8.5-10.1) Total Bilirubin 0.6 mg/dL (0.2-1.0) Aspartate Amino Transf (AST/SGOT) 13 U/L (15-37) Alanine Aminotransferase (ALT/SGPT) 15 U/L (16-63) Alkaline Phosphatase 79 U/L (46-116) Total Protein 8.7 g/dL (6.4-8.2) Albumin 3.5 g/dL (3.4-5.0) Albumin/Globulin Ratio 0.7 (1.0-1.7) Urine Collection Type Void Urine Color Mary Ann Urine Clarity Clear Urine pH 6.0 Urine Specific [place] >=1.030 Urine Protein 30 mg/dL (NEG-TRACE) Urine Glucose (UA) Negative mg/dL (NEG) Urine Ketones (Stick) >=80 mg/dL (NEG) Urine Blood Negative (NEG) Urine Nitrite Negative (NEG) Urine Bilirubin Moderate (NEG) Urine Urobilinogen Dipstick 1.0 mg/dL (0.2 mg/dL) Urine Leukocyte Esterase Small (NEG) Urine RBC 0 /HPF (0-2) Urine WBC 1-4 /HPF (0-4) Urine Squamous Epithelial Cells Occ /LPF Urine Bacteria 0 /HPF (0-FEW) Urine Hyaline Casts Few /HPF Urine Mucus Marked /LPF Group A Streptococcus Rapid Negative (NEGATIVE) Test 12/31/16 05:00 White Blood Count 14.3 x10^3/uL (4.0-11.0) Red Blood Count 5.32 x10^6/uL (4.30-5.70) Hemoglobin 15.1 g/dL (13.0-17.5) Hematocrit 45.7 % (39.0-53.0) Mean Corpuscular Volume 86 fL (79-100) Mean Corpuscular Hemoglobin 28 pg (25-35) Mean Corpuscular Hemoglobin Concent 33 g/dL (31-37) Red Cell Distribution Width 13.1 % (11.5-14.5) Platelet Count 276 x10^3/uL (140-400) Neutrophils (%) (Auto) 72 % (31-73) Lymphocytes (%) (Auto) 18 % (24-48) Monocytes (%) (Auto) 10 % (0-9) Eosinophils (%) (Auto) 0 % (0-3) Basophils (%) (Auto) 1 % (0-3) Neutrophils # (Auto) 10.3 x10^3uL (1.8-7.7) Lymphocytes # (Auto) 2.5 x10^3/uL (1.0-4.8) Monocytes # (Auto) 1.4 x10^3/uL (0.0-1.1) Eosinophils # (Auto) 0.1 x10^3/uL (0.0-0.7) Basophils # (Auto) 0.1 x10^3/uL (0.0-0.2) Sodium Level 140 mmol/L (136-145) Potassium Level 3.2 mmol/L (3.5-5.1) Chloride Level 102 mmol/L (98-107) Carbon Dioxide Level 25 mmol/L (21-32) Anion Gap 13 (6-14) Blood Urea Nitrogen 10 mg/dL (8-26) Creatinine 1.1 mg/dL (0.7-1.3) Estimated GFR (Cockcroft-Gault) 85.3 Glucose Level 69 mg/dL (70-99) Calcium Level 8.2 mg/dL (8.5-10.1) Laboratory Tests Test 12/30/16 17:27 12/31/16 00:05 12/31/16 05:00 Group A Streptococcus Rapid Negative (NEGATIVE) Lactic Acid Level 0.9 mmol/L (0.4-2.0) White Blood Count 14.3 x10^3/uL (4.0-11.0) Red Blood Count 5.32 x10^6/uL (4.30-5.70) Hemoglobin 15.1 g/dL (13.0-17.5) Hematocrit 45.7 % (39.0-53.0) Mean Corpuscular Volume 86 fL (79-100) Mean Corpuscular Hemoglobin 28 pg (25-35) Mean Corpuscular Hemoglobin Concent 33 g/dL (31-37) Red Cell Distribution Width 13.1 % (11.5-14.5) Platelet Count 276 x10^3/uL (140-400) Neutrophils (%) (Auto) 72 % (31-73) Lymphocytes (%) (Auto) 18 % (24-48) Monocytes (%) (Auto) 10 % (0-9) Eosinophils (%) (Auto) 0 % (0-3) Basophils (%) (Auto) 1 % (0-3) Neutrophils # (Auto) 10.3 x10^3uL (1.8-7.7) Lymphocytes # (Auto) 2.5 x10^3/uL (1.0-4.8) Monocytes # (Auto) 1.4 x10^3/uL (0.0-1.1) Eosinophils # (Auto) 0.1 x10^3/uL (0.0-0.7) Basophils # (Auto) 0.1 x10^3/uL (0.0-0.2) Sodium Level 140 mmol/L (136-145) Potassium Level 3.2 mmol/L (3.5-5.1) Chloride Level 102 mmol/L (98-107) Carbon Dioxide Level 25 mmol/L (21-32) Anion Gap 13 (6-14) Blood Urea Nitrogen 10 mg/dL (8-26) Creatinine 1.1 mg/dL (0.7-1.3) Estimated GFR (Cockcroft-Gault) 85.3 Glucose Level 69 mg/dL (70-99) Calcium Level 8.2 mg/dL (8.5-10.1) Microbiology 12/30/16 Blood Culture - Preliminary, Resulted NO GROWTH AFTER 1 DAY Medications Current Medications Sodium Chloride 1,000 ml @ 0 mls/hr 1X ONCE IV Last administered on 16:10; Start 12/30/16 at 15:45; Stop 12/30/16 at 16:06; Status DC Sodium Chloride (Normal Saline Flush) 3 ml QSHIFT PRN IV AFTER MEDS AND BLOOD DRAWS; Start 12/30/16 at 15:45 Morphine Sulfate 2 mg 1X ONCE IV Last administered on 12/30/16 16:11; Start 12/30/16 at 15:45; Stop 12/30/16 at 16:06; Status DC Ondansetron HCl (Zofran) 4 mg PRN Q6HRS PRN IV NAUSEA/VOMITING Last administered on 12/30/16 16:10; Start 12/30/16 at 15:45; Stop 12/30/16 at 19:05 ; Status DC Ondansetron HCl (Zofran) 4 mg STK-MED ONCE .ROUTE ; Start 12/30/16 at 16:06; Stop 12/30/16 at 16:07; Status DC Morphine Sulfate 2 mg STK-MED ONCE .ROUTE ; Start 12/30/16 at 16:06; Stop at 16:07; Status DC Ceftriaxone Sodium 50 ml @ 100 mls/hr 1X ONCE IV Last administered on 17:46; Start 12/30/16 at 17:15; Stop 12/30/16 at 17:44; Status DC Vancomycin HCl 2 gm/Sodium Chloride 500 ml @ 250 mls/hr 1X ONCE IV Last administered on 12/30/16 21:09; Start 12/30/16 at 17:15; Stop 12/30/16 at 19:14 ; Status DC Sodium Chloride 1,000 ml @ 1,000 mls/hr 1X ONCE IV Last administered on 17:46; Start 12/30/16 at 17:30; Stop 12/30/16 at 18:29; Status DC Piperacillin Sod/ Tazobactam Sod 4.5 gm/Sodium Chloride 100 ml @ 200 mls/hr 1X ONCE IV Last administered on 12/30/16 18:18; Start 12/30/16 at 18:00; Stop 12/30/16 at 18:29; Status DC Vancomycin HCl (Vanco Per Pharmacy) 1 each PRN DAILY PRN MC SEE COMMENTS Last administered on 12/30/16 21:32; Start 12/30/16 at 18:00 Ondansetron HCl (Zofran) 4 mg PRN Q8HRS PRN IV NAUSEA/VOMITING; Start 12/30/16 at 18:00; Stop 12/31/16 at 13:16; Status DC Morphine Sulfate 2 mg PRN Q2HR PRN IV PAIN Last administered on 12/31/16 08:15 ; Start 12/30/16 at 18:00; Stop 12/31/16 at 08:38; Status DC Piperacillin Sod/ Tazobactam Sod 4.5 gm/Sodium Chloride 100 ml @ 200 mls/hr Q6HRS IV Last administered on 12/31/16 11:49; Start 12/31/16 at 00:00 Acetaminophen (Tylenol) 325 mg PRN Q6HRS PRN PO MILD PAIN / TEMP Last administered on 12/31/16 15:06; Start 12/30/16 at 19:00 Acetaminophen/ Hydrocodone Bitart (Lortab 5/325) 1 tab PRN Q6HRS PRN PO MODERATE TO SEVERE PAIN Last administered on 12/31/16 10:40; Start 12/30/16 at 19:00 Hydralazine HCl (Apresoline) 10 mg PRN Q4HRS PRN IVP ELEVATED BP, SEE COMMENTS ; Start 12/30/16 at 19:00 Ondansetron HCl (Zofran) 4 mg PRN Q8HRS PRN IV NAUSEA/VOMITING Last administered on 12/31/16 16:31; Start 12/30/16 at 19:00 Albuterol Sulfate (Ventolin Neb Soln) 2.5 mg PRN Q4HRS PRN NEB SHORTNESS OF BREATH; Start 12/30/16 at 19:00 Hydromorphone HCl (Dilaudid) 1 mg 1X ONCE IM ; Start 12/30/16 at 19:30; Stop at 19:31; Status DC Vancomycin HCl 1.25 gm/Sodium Chloride 250 ml @ 167 mls/hr Q8H IV Last administered on 12/31/16 12:30; Start 12/31/16 at 04:00 Vancomycin HCl 1 each 1X ONCE MC ; Start 12/31/16 at 19:30; Stop 12/31/16 at 19 :31 Sodium Chloride 1,000 ml @ 75 mls/hr [id number] IV Last administered on 00:18; Start 12/31/16 at 00:15; Stop 12/31/16 at 15:40; Status DC Lidocaine HCl (Viscous Lidocaine) 15 ml PRN Q4HRS PRN SWSW MOUTH PAIN Last administered on 12/31/16 02:01; Start 12/31/16 at 01:30 Hydromorphone HCl (Dilaudid) 0.5 mg PRN Q2HRS PRN IV PAIN Last administered on 12/31/16 14:55; Start 12/31/16 at 08:45; Stop 12/31/16 at 16:05; Status DC Acetaminophen (Acetaminophen Supp) 650 mg PRN Q6HRS PRN OR MILD PAIN / TEMP; Start 12/31/16 at 08:45 Potassium Chloride 40 meq/ Dextrose 1,020 ml @ 75 mls/hr 1X ONCE IV Last administered on 12/31/16 12:30; Start 12/31/16 at 12:00; Stop 01/01/17 at 01:35 Hydromorphone HCl (Dilaudid) 1 mg PRN Q2HR PRN IV PAIN Last administered on 16:16; Start 12/31/16 at 16:00 Amino Acids/ Glycerin/ Electrolytes 1,000 ml @ 80 mls/hr [id number] IV Last administered on 12/31/16 16:33; Start 12/31/16 at 16:30 Valacyclovir HCl (Valtrex) 1,000 mg TID PO Last administered on 12/31/16 16:29 ; Start 12/31/16 at 16:30 Active Scripts Active Reported Metronidazole 500 Mg Tablet 1 Tab PO BID Valtrex (Valacyclovir Hcl) 1,000 Mg Tablet 1 Tab PO Q8HRS Doxycycline Hyclate 100 Mg Capsule 1 Cap PO BID Vitals/I & O Vital Sign - Last 24 Hours 12/30/16 12/30/16 12/30/16 12/30/16 18:00 18:30 19:00 19:30 Pulse 105 92 113 107 Resp 18 18 B/P (MAP) 118/62 (80) 142/82 (102) 131/78 (95) 141/84 (103) Pulse Ox 98 98 98 98 O2 Delivery Room Air Room Air 12/30/16 12/30/16 12/30/16 12/30/16 20:10 20:15 21:06 21:10 Temp 99.5 99.5 Pulse 95 Resp 19 20 18 B/P (MAP) 117/73 (88) Pulse Ox 97 98 98 O2 Delivery Room Air Room Air Room Air Room Air 12/30/16 12/31/16 12/31/16 12/31/16 23:22 00:13 02:24 03:30 Temp 99.9 100.9 99.9 100.9 Pulse 104 116 Resp 17 20 20 B/P (MAP) 125/76 (92) 117/71 (86) Pulse Ox 97 97 97 O2 Delivery Room Air Room Air Room Air Room Air 12/31/16 12/31/16 12/31/16 12/31/16 04:22 04:24 04:55 07:00 Temp 100.0 100.0 Pulse 105 Resp 18 18 20 B/P (MAP) 129/74 (92) Pulse Ox 97 97 97 97 O2 Delivery Room Air Room Air Room Air Room Air 12/31/16 12/31/16 12/31/16 12/31/16 07:40 08:15 08:53 09:12 Resp 16 16 Pulse Ox 97 O2 Delivery Room Air Room Air Room Air Room Air 12/31/16 12/31/16 12/31/16 12/31/16 10:40 10:41 11:00 11:40 Temp 98.8 98.8 Pulse 98 Resp 16 20 16 B/P (MAP) 124/74 (91) Pulse Ox 93 O2 Delivery Room Air Room Air Room Air Room Air 12/31/16 12/31/16 12/31/16 12/31/16 12:34 13:04 14:55 15:00 Temp 100.0 100.0 Pulse 102 Resp 16 16 16 20 B/P (MAP) 135/71 (92) Pulse Ox 94 O2 Delivery Room Air Room Air Room Air Room Air 12/31/16 16:16 Resp 16 O2 Delivery Room Air Intake and Output 12/30/16 12/30/16 12/31/16 15:00 23:00 07:00 Intake Total 2150 ml 1528 ml Output Total 500 ml Balance 2150 ml 1028 ml ANJELICA SUNG MD Dec 31, 2016 17:19
[2016-12-31 19:00] VITALS: BP 113/64
[2016-12-31] MEDS: VANCOMYCIN PER PHARMACY MC PRN (22:43)
[2016-12-31 23:00] VITALS: BP 133/76
[2016-12-31] MEDS ORDERED: ACETAMINOPHEN 325 MG TABLET. PO ONE (23:30)
[2017-01-01] VITALS (7 sets, daily range): BP systolic 116–136; BP diastolic 74–86
[2017-01-01] MEDS: HYDROmorphone 2 MG/ML VIAL IV PRN ×10 (01:28→21:55)
[2017-01-01] MEDS: VANCOMYCIN 1.25 GM in IV NORMAL SALINE 250ML 250 ML IV SCH ×3 (03:24→20:23)
[2017-01-01 05:09] LABS: BASO # 0.1 x10^3/uL (0.0-0.2); BASO % 0 % (0-3); EOS % 0 % (0-3); HEMATOCRIT 45.4 % (39.0-53.0); HEMOGLOBIN 15.1 g/dL (13.0-17.5); LYMPH # 1.8 x10^3/uL (1.0-4.8); LYMPH % 13 % (24-48); MEAN CORPUSCULAR HEMOGLOBIN 29 pg (25-35); MEAN CORPUSCULAR HGB CONC 33 g/dL (31-37); MEAN CORPUSCULAR VOLUME 87 fL (79-100); MONO % 10 % (0-9); NEUT % 77 % (31-73); PLATELET COUNT 279 x10^3/uL (140-400); RED BLOOD COUNT 5.25 x10^6/uL (4.30-5.70); RED CELL DISTRIBUTION WIDTH 13.6 % (11.5-14.5); WHITE BLOOD COUNT 14.6 x10^3/uL (4.0-11.0)
[2017-01-01 05:27] LABS: CALCIUM 8.8 mg/dL (8.5-10.1); CREATININE 0.9 mg/dL (0.7-1.3); GFR 107.6; POTASSIUM 3.5 mmol/L (3.5-5.1)
[2017-01-01] MEDS: AMINO AC 3%/ELECTROLYTE/GLYCER 1,000 ML IV SCH ×2 (06:05→17:30)
[2017-01-01] MEDS: ACETAMINOPHEN 325 MG TABLET. PO PRN ×3 (06:06→21:29)
[2017-01-01] MEDS: PIPERACILLIN/TAZOBACTAM 4.5 GM in IV NORMAL SALINE 100ML 100 ML IV SCH ×4 (06:09→23:08)
[2017-01-01] MEDS: HYDROcodone/APAP 5/325MG 1 TAB TABLET PO PRN ×2 (08:17→14:55)
--- NOTE | 2017-01-01 10:53 | PDOC ---
PROGRESS NOTES Chief Complaint Chief Complaint cc: cellulitis A/P 1. Multiple vesiculopapular rashes with cellulitis on scrotum and oral mucosa : ON Zosyn and Vancomycin, work up pending, ID following,possible viral infection, d/w ID 2. Rash on glans penis. 3. Hypokalemia.: replaced, continue iv hydration, 4. Leukocytosis.: monitor 5. Intractable pain: started on IV Dilaudid prn , avoid co2 narcosis 6. Suspected genital herpes. 7. Dehydration with hypoglycemia. decreased oral intake due to pain, start on PPN and IV dextrose. History of Present Illness History of Present Illness pain 10, in mouth and groin region, mild fevers Vitals Vitals Vital Signs Date Time Temp Pulse Resp B/P (MAP) Pulse Ox O2 Delivery O2 Flow Rate FiO2 01/01/17 08:44 18 Room Air 01/01/17 07:00 101.3 103 116/83 (94) 94 101.3 Physical Exam General: Alert, Oriented X3 Heart: Normal S1 Lungs: Clear Abdomen: Normal bowel sounds, Soft Extremities: No clubbing Labs LABS Laboratory Tests Test 12/31/16 19:15 01/01/17 03:38 Vancomycin Level Trough 11.1 mcg/mL (10.0-20.0) Vancomycin Last Dose Date Vancomycin Last Dose Time White Blood Count 14.6 x10^3/uL (4.0-11.0) Red Blood Count 5.25 x10^6/uL (4.30-5.70) Hemoglobin 15.1 g/dL (13.0-17.5) Hematocrit 45.4 % (39.0-53.0) Mean Corpuscular Volume 87 fL (79-100) Mean Corpuscular Hemoglobin 29 pg (25-35) Mean Corpuscular Hemoglobin Concent 33 g/dL (31-37) Red Cell Distribution Width 13.6 % (11.5-14.5) Platelet Count 279 x10^3/uL (140-400) Neutrophils (%) (Auto) 77 % (31-73) Lymphocytes (%) (Auto) 13 % (24-48) Monocytes (%) (Auto) 10 % (0-9) Eosinophils (%) (Auto) 0 % (0-3) Basophils (%) (Auto) 0 % (0-3) Neutrophils # (Auto) 11.3 x10^3uL (1.8-7.7) Lymphocytes # (Auto) 1.8 x10^3/uL (1.0-4.8) Monocytes # (Auto) 1.4 x10^3/uL (0.0-1.1) Eosinophils # (Auto) 0.0 x10^3/uL (0.0-0.7) Basophils # (Auto) 0.1 x10^3/uL (0.0-0.2) Sodium Level 136 mmol/L (136-145) Potassium Level 3.5 mmol/L (3.5-5.1) Chloride Level 97 mmol/L (98-107) Carbon Dioxide Level 29 mmol/L (21-32) Anion Gap 10 (6-14) Blood Urea Nitrogen 9 mg/dL (8-26) Creatinine 0.9 mg/dL (0.7-1.3) Estimated GFR (Cockcroft-Gault) 107.6 Glucose Level 55 mg/dL (70-99) Calcium Level 8.8 mg/dL (8.5-10.1) Assessment and Plan Assessmemt and Plan Problems Medical Problems: (1) Cellulitis of scrotum Status: Acute (2) Herpes genitalia Status: Acute (3) Leukocytosis Status: Acute Problems: Comment Review of Relevant I have reviewed the following items nicole (where applicable) has been applied. Labs Laboratory Tests Test 12/30/16 15:55 12/30/16 17:10 12/30/16 17:27 12/31/16 00:05 White Blood Count 17.5 x10^3/uL (4.0-11.0) Red Blood Count 6.25 x10^6/uL (4.30-5.70) Hemoglobin 18.2 g/dL (13.0-17.5) Hematocrit 52.7 % (39.0-53.0) Mean Corpuscular Volume 84 fL (79-100) Mean Corpuscular Hemoglobin 29 pg (25-35) Mean Corpuscular Hemoglobin Concent 35 g/dL (31-37) Red Cell Distribution Width 13.2 % (11.5-14.5) Platelet Count 346 x10^3/uL (140-400) Neutrophils (%) (Auto) 82 % (31-73) Lymphocytes (%) (Auto) 9 % (24-48) Monocytes (%) (Auto) 9 % (0-9) Eosinophils (%) (Auto) 0 % (0-3) Basophils (%) (Auto) 0 % (0-3) Neutrophils # (Auto) 14.3 x10^3uL (1.8-7.7) Lymphocytes # (Auto) 1.6 x10^3/uL (1.0-4.8) Monocytes # (Auto) 1.5 x10^3/uL (0.0-1.1) Eosinophils # (Auto) 0.0 x10^3/uL (0.0-0.7) Basophils # (Auto) 0.0 x10^3/uL (0.0-0.2) Sodium Level 135 mmol/L (136-145) Potassium Level 3.4 mmol/L (3.5-5.1) Chloride Level 95 mmol/L (98-107) Carbon Dioxide Level 20 mmol/L (21-32) Anion Gap 20 (6-14) Blood Urea Nitrogen 11 mg/dL (8-26) Creatinine 1.2 mg/dL (0.7-1.3) Estimated GFR (Cockcroft-Gault) 77.2 BUN/Creatinine Ratio 9 (6-20) Glucose Level 99 mg/dL (70-99) Lactic Acid Level 2.5 mmol/L (0.4-2.0) 0.9 mmol/L (0.4-2.0) Calcium Level 9.8 mg/dL (8.5-10.1) Total Bilirubin 0.6 mg/dL (0.2-1.0) Aspartate Amino Transf (AST/SGOT) 13 U/L (15-37) Alanine Aminotransferase (ALT/SGPT) 15 U/L (16-63) Alkaline Phosphatase 79 U/L (46-116) Total Protein 8.7 g/dL (6.4-8.2) Albumin 3.5 g/dL (3.4-5.0) Albumin/Globulin Ratio 0.7 (1.0-1.7) Urine Collection Type Void Urine Color [place] Urine Clarity Clear Urine pH 6.0 Urine Specific [place] >=1.030 Urine Protein 30 mg/dL (NEG-TRACE) Urine Glucose (UA) Negative mg/dL (NEG) Urine Ketones (Stick) >=80 mg/dL (NEG) Urine Blood Negative (NEG) Urine Nitrite Negative (NEG) Urine Bilirubin Moderate (NEG) Urine Urobilinogen Dipstick 1.0 mg/dL (0.2 mg/dL) Urine Leukocyte Esterase Small (NEG) Urine RBC 0 /HPF (0-2) Urine WBC 1-4 /HPF (0-4) Urine Squamous Epithelial Cells Occ /LPF Urine Bacteria 0 /HPF (0-FEW) Urine Hyaline Casts Few /HPF Urine Mucus Marked /LPF Group A Streptococcus Rapid Negative (NEGATIVE) Test 12/31/16 05:00 12/31/16 19:15 01/01/17 03:38 White Blood Count 14.3 x10^3/uL (4.0-11.0) 14.6 x10^3/uL (4.0-11.0) Red Blood Count 5.32 x10^6/uL (4.30-5.70) 5.25 x10^6/uL (4.30-5.70) Hemoglobin 15.1 g/dL (13.0-17.5) 15.1 g/dL (13.0-17.5) Hematocrit 45.7 % (39.0-53.0) 45.4 % (39.0-53.0) Mean Corpuscular Volume 86 fL (79-100) 87 fL (79-100) Mean Corpuscular Hemoglobin 28 pg (25-35) 29 pg (25-35) Mean Corpuscular Hemoglobin Concent 33 g/dL (31-37) 33 g/dL (31-37) Red Cell Distribution Width 13.1 % (11.5-14.5) 13.6 % (11.5-14.5) Platelet Count 276 x10^3/uL (140-400) 279 x10^3/uL (140-400) Neutrophils (%) (Auto) 72 % (31-73) 77 % (31-73) Lymphocytes (%) (Auto) 18 % (24-48) 13 % (24-48) Monocytes (%) (Auto) 10 % (0-9) 10 % (0-9) Eosinophils (%) (Auto) 0 % (0-3) 0 % (0-3) Basophils (%) (Auto) 1 % (0-3) 0 % (0-3) Neutrophils # (Auto) 10.3 x10^3uL (1.8-7.7) 11.3 x10^3uL (1.8-7.7) Lymphocytes # (Auto) 2.5 x10^3/uL (1.0-4.8) 1.8 x10^3/uL (1.0-4.8) Monocytes # (Auto) 1.4 x10^3/uL (0.0-1.1) 1.4 x10^3/uL (0.0-1.1) Eosinophils # (Auto) 0.1 x10^3/uL (0.0-0.7) 0.0 x10^3/uL (0.0-0.7) Basophils # (Auto) 0.1 x10^3/uL (0.0-0.2) 0.1 x10^3/uL (0.0-0.2) Sodium Level 140 mmol/L (136-145) 136 mmol/L (136-145) Potassium Level 3.2 mmol/L (3.5-5.1) 3.5 mmol/L (3.5-5.1) Chloride Level 102 mmol/L (98-107) 97 mmol/L (98-107) Carbon Dioxide Level 25 mmol/L (21-32) 29 mmol/L (21-32) Anion Gap 13 (6-14) 10 (6-14) Blood Urea Nitrogen 10 mg/dL (8-26) 9 mg/dL (8-26) Creatinine 1.1 mg/dL (0.7-1.3) 0.9 mg/dL (0.7-1.3) Estimated GFR (Cockcroft-Gault) 85.3 107.6 Glucose Level 69 mg/dL (70-99) 55 mg/dL (70-99) Calcium Level 8.2 mg/dL (8.5-10.1) 8.8 mg/dL (8.5-10.1) Vancomycin Level Trough 11.1 mcg/mL (10.0-20.0) Vancomycin Last Dose Date Vancomycin Last Dose Time Laboratory Tests Test 12/31/16 19:15 01/01/17 03:38 Vancomycin Level Trough 11.1 mcg/mL (10.0-20.0) Vancomycin Last Dose Date Vancomycin Last Dose Time White Blood Count 14.6 x10^3/uL (4.0-11.0) Red Blood Count 5.25 x10^6/uL (4.30-5.70) Hemoglobin 15.1 g/dL (13.0-17.5) Hematocrit 45.4 % (39.0-53.0) Mean Corpuscular Volume 87 fL (79-100) Mean Corpuscular Hemoglobin 29 pg (25-35) Mean Corpuscular Hemoglobin Concent 33 g/dL (31-37) Red Cell Distribution Width 13.6 % (11.5-14.5) Platelet Count 279 x10^3/uL (140-400) Neutrophils (%) (Auto) 77 % (31-73) Lymphocytes (%) (Auto) 13 % (24-48) Monocytes (%) (Auto) 10 % (0-9) Eosinophils (%) (Auto) 0 % (0-3) Basophils (%) (Auto) 0 % (0-3) Neutrophils # (Auto) 11.3 x10^3uL (1.8-7.7) Lymphocytes # (Auto) 1.8 x10^3/uL (1.0-4.8) Monocytes # (Auto) 1.4 x10^3/uL (0.0-1.1) Eosinophils # (Auto) 0.0 x10^3/uL (0.0-0.7) Basophils # (Auto) 0.1 x10^3/uL (0.0-0.2) Sodium Level 136 mmol/L (136-145) Potassium Level 3.5 mmol/L (3.5-5.1) Chloride Level 97 mmol/L (98-107) Carbon Dioxide Level 29 mmol/L (21-32) Anion Gap 10 (6-14) Blood Urea Nitrogen 9 mg/dL (8-26) Creatinine 0.9 mg/dL (0.7-1.3) Estimated GFR (Cockcroft-Gault) 107.6 Glucose Level 55 mg/dL (70-99) Calcium Level 8.8 mg/dL (8.5-10.1) Microbiology 12/30/16 Blood Culture - Preliminary, Resulted NO GROWTH AFTER 1 DAY 12/30/16 Gram Stain - Final, Complete 12/30/16 Gram Stain - Final, Complete Medications Current Medications Sodium Chloride 1,000 ml @ 0 mls/hr 1X ONCE IV Last administered on 16:10; Start 12/30/16 at 15:45; Stop 12/30/16 at 16:06; Status DC Sodium Chloride (Normal Saline Flush) 3 ml QSHIFT PRN IV AFTER MEDS AND BLOOD DRAWS; Start 12/30/16 at 15:45 Morphine Sulfate 2 mg 1X ONCE IV Last administered on 12/30/16 16:11; Start 12/30/16 at 15:45; Stop 12/30/16 at 16:06; Status DC Ondansetron HCl (Zofran) 4 mg PRN Q6HRS PRN IV NAUSEA/VOMITING Last administered on 12/30/16 16:10; Start 12/30/16 at 15:45; Stop 12/30/16 at 19:05 ; Status DC Ondansetron HCl (Zofran) 4 mg STK-MED ONCE .ROUTE ; Start 12/30/16 at 16:06; Stop 12/30/16 at 16:07; Status DC Morphine Sulfate 2 mg STK-MED ONCE .ROUTE ; Start 12/30/16 at 16:06; Stop at 16:07; Status DC Ceftriaxone Sodium 50 ml @ 100 mls/hr 1X ONCE IV Last administered on 17:46; Start 12/30/16 at 17:15; Stop 12/30/16 at 17:44; Status DC Vancomycin HCl 2 gm/Sodium Chloride 500 ml @ 250 mls/hr 1X ONCE IV Last administered on 12/30/16 21:09; Start 12/30/16 at 17:15; Stop 12/30/16 at 19:14 ; Status DC Sodium Chloride 1,000 ml @ 1,000 mls/hr 1X ONCE IV Last administered on 17:46; Start 12/30/16 at 17:30; Stop 12/30/16 at 18:29; Status DC Piperacillin Sod/ Tazobactam Sod 4.5 gm/Sodium Chloride 100 ml @ 200 mls/hr 1X ONCE IV Last administered on 12/30/16 18:18; Start 12/30/16 at 18:00; Stop 12/30/16 at 18:29; Status DC Vancomycin HCl (Vanco Per Pharmacy) 1 each PRN DAILY PRN MC SEE COMMENTS Last administered on 12/31/16 22:43; Start 12/30/16 at 18:00 Ondansetron HCl (Zofran) 4 mg PRN Q8HRS PRN IV NAUSEA/VOMITING; Start 12/30/16 at 18:00; Stop 12/31/16 at 13:16; Status DC Morphine Sulfate 2 mg PRN Q2HR PRN IV PAIN Last administered on 12/31/16 08:15 ; Start 12/30/16 at 18:00; Stop 12/31/16 at 08:38; Status DC Piperacillin Sod/ Tazobactam Sod 4.5 gm/Sodium Chloride 100 ml @ 200 mls/hr Q6HRS IV Last administered on 01/01/17 06:09; Start 12/31/16 at 00:00 Acetaminophen (Tylenol) 325 mg PRN Q6HRS PRN PO MILD PAIN / TEMP Last administered on 12/31/16 23:07; Start 12/30/16 at 19:00; Stop 12/31/16 at 23:13 ; Status DC Acetaminophen/ Hydrocodone Bitart (Lortab 5/325) 1 tab PRN Q6HRS PRN PO MODERATE TO SEVERE PAIN Last administered on 01/01/17 08:17; Start 12/30/16 at 19:00 Hydralazine HCl (Apresoline) 10 mg PRN Q4HRS PRN IVP ELEVATED BP, SEE COMMENTS ; Start 12/30/16 at 19:00 Ondansetron HCl (Zofran) 4 mg PRN Q8HRS PRN IV NAUSEA/VOMITING Last administered on 12/31/16 16:31; Start 12/30/16 at 19:00 Albuterol Sulfate (Ventolin Neb Soln) 2.5 mg PRN Q4HRS PRN NEB SHORTNESS OF BREATH; Start 12/30/16 at 19:00 Hydromorphone HCl (Dilaudid) 1 mg 1X ONCE IM ; Start 12/30/16 at 19:30; Stop at 19:31; Status DC Vancomycin HCl 1.25 gm/Sodium Chloride 250 ml @ 167 mls/hr Q8H IV Last administered on 01/01/17 03:24; Start 12/31/16 at 04:00 Vancomycin HCl 1 each 1X ONCE MC Last administered on 12/31/16 19:30; Start 12/31/16 at 19:30; Stop 12/31/16 at 19:31; Status DC Sodium Chloride 1,000 ml @ 75 mls/hr [id number] IV Last administered on 00:18; Start 12/31/16 at 00:15; Stop 12/31/16 at 15:40; Status DC Lidocaine HCl (Viscous Lidocaine) 15 ml PRN Q4HRS PRN SWSW MOUTH PAIN Last administered on 12/31/16 02:01; Start 12/31/16 at 01:30 Hydromorphone HCl (Dilaudid) 0.5 mg PRN Q2HRS PRN IV PAIN Last administered on 12/31/16 14:55; Start 12/31/16 at 08:45; Stop 12/31/16 at 16:05; Status DC Acetaminophen (Acetaminophen Supp) 650 mg PRN Q6HRS PRN SC MILD PAIN / TEMP; Start 12/31/16 at 08:45 Potassium Chloride 40 meq/ Dextrose 1,020 ml @ 75 mls/hr 1X ONCE IV Last administered on 12/31/16 12:30; Start 12/31/16 at 12:00; Stop 01/01/17 at 01:35 ; Status DC Hydromorphone HCl (Dilaudid) 1 mg PRN Q2HR PRN IV PAIN Last administered on 08:18; Start 12/31/16 at 16:00 Amino Acids/ Glycerin/ Electrolytes 1,000 ml @ 80 mls/hr [id number] IV Last administered on 01/01/17 06:05; Start 12/31/16 at 16:30 Valacyclovir HCl (Valtrex) 1,000 mg TID PO Last administered on 12/31/16 20:59 ; Start 12/31/16 at 16:30 Acetaminophen (Tylenol) 650 mg PRN Q6HRS PRN PO MILD PAIN / TEMP Last administered on 01/01/17 06:06; Start 12/31/16 at 23:15 Acetaminophen (Tylenol) 325 mg 1X ONCE PO Last administered on 6/17/17at 23:19 ; Start 12/31/16 at 23:30; Stop 12/31/16 at 23:31; Status DC Dextrose/Sodium Chloride 1,000 ml @ 40 mls/hr Q24H IV ; Start 01/01/17 at 11:00 ; Status UNV Active Scripts Active Reported Metronidazole 500 Mg Tablet 1 Tab PO BID Valtrex (Valacyclovir Hcl) 1,000 Mg Tablet 1 Tab PO Q8HRS Doxycycline Hyclate 100 Mg Capsule 1 Cap PO BID Vitals/I & O Vital Sign - Last 24 Hours 12/31/16 12/31/16 12/31/16 12/31/16 11:00 12:34 13:04 14:55 Temp 98.8 98.8 Pulse 98 Resp 20 16 B/P (MAP) 124/74 (91) Pulse Ox 93 O2 Delivery Room Air Room Air Room Air Room Air 12/31/16 12/31/16 12/31/16 12/31/16 15:00 16:16 18:31 19:00 Temp 100.0 102.5 100.0 102.5 Pulse 102 127 Resp 20 16 18 B/P (MAP) 135/71 (92) 113/64 (80) Pulse Ox 94 93 O2 Delivery Room Air Room Air Room Air Room Air 12/31/16 12/31/16 12/31/16 12/31/16 20:15 20:57 20:58 21:58 Resp 17 Pulse Ox 93 93 93 O2 Delivery Room Air Room Air Room Air Room Air 12/31/16 12/31/16 01/01/17 01/01/17 22:59 23:00 01:28 03:00 Temp 102.1 101.8 102.1 101.8 Pulse 110 107 Resp 20 18 18 B/P (MAP) 133/76 (95) 136/81 (99) Pulse Ox 95 95 95 O2 Delivery Room Air Room Air Room Air Room Air 01/01/17 01/01/17 01/01/17 01/01/17 03:21 03:53 06:06 07:00 Temp 101.3 101.3 Pulse 103 Resp 22 22 20 B/P (MAP) 116/83 (94) Pulse Ox 95 95 95 94 O2 Delivery Room Air Room Air Room Air 01/01/17 01/01/17 01/01/17 08:17 08:18 08:44 Resp 16 16 18 O2 Delivery Room Air Room Air Room Air Intake and Output 12/31/16 12/31/16 01/01/17 15:00 23:00 07:00 Intake Total 350 ml 829 ml Output Total 1200 ml 1100 ml Balance -850 ml -271 ml ANJELICA SUNG MD Jan 01, 2017 10:53
[2017-01-01] MEDS: valACYclovir 500 MG TABLET. PO SCH ×3 (10:57→22:28)
[2017-01-01] MEDS: IV DEXTROSE 5% - 0.9 % NACL 1,000 ML IV SCH (10:58)
[2017-01-01] MEDS ORDERED: PHENOL ORAL SPRAY 177ML BOTTLE. PO PRN (12:30)
--- NOTE | 2017-01-01 12:54 | PDOC ---
Infectious Disease Note Subjective Subjective Not feeling well. Fever 102.8 and chills c/o persistent pain and ulcerations. + cough, denies chest discomfort or SOA Denies N/V/D ROS ROS Vital Sign Vital Signs Vital Signs Date Time Temp Pulse Resp B/P (MAP) Pulse Ox O2 Delivery O2 Flow Rate FiO2 01/01/17 11:20 16 Room Air 01/01/17 11:00 100.6 108 122/76 (91) 94 100.6 Physical Exam PHYSICAL EXAM GENERAL: Grimacing, HEENT: Oral cavity, multiple herpetic-type ulcerations. Uvula midline NECK: Supple, no JVD, no LN LUNGS: Clear HEART: S1S2, no gallop, no murmur ABD: Soft, NT, BS active EXT: No edema, no cyanosis. DEBRANDER: Alert, oriented x 3, no focal neurologic deficit SKIN: Glans penis ulcerations. new red lesions noted legs and back IV: ok Labs Lab Laboratory Tests Test 12/31/16 19:15 01/01/17 03:38 Vancomycin Level Trough 11.1 mcg/mL (10.0-20.0) Vancomycin Last Dose Date Vancomycin Last Dose Time White Blood Count 14.6 x10^3/uL (4.0-11.0) Red Blood Count 5.25 x10^6/uL (4.30-5.70) Hemoglobin 15.1 g/dL (13.0-17.5) Hematocrit 45.4 % (39.0-53.0) Mean Corpuscular Volume 87 fL (79-100) Mean Corpuscular Hemoglobin 29 pg (25-35) Mean Corpuscular Hemoglobin Concent 33 g/dL (31-37) Red Cell Distribution Width 13.6 % (11.5-14.5) Platelet Count 279 x10^3/uL (140-400) Neutrophils (%) (Auto) 77 % (31-73) Lymphocytes (%) (Auto) 13 % (24-48) Monocytes (%) (Auto) 10 % (0-9) Eosinophils (%) (Auto) 0 % (0-3) Basophils (%) (Auto) 0 % (0-3) Neutrophils # (Auto) 11.3 x10^3uL (1.8-7.7) Lymphocytes # (Auto) 1.8 x10^3/uL (1.0-4.8) Monocytes # (Auto) 1.4 x10^3/uL (0.0-1.1) Eosinophils # (Auto) 0.0 x10^3/uL (0.0-0.7) Basophils # (Auto) 0.1 x10^3/uL (0.0-0.2) Sodium Level 136 mmol/L (136-145) Potassium Level 3.5 mmol/L (3.5-5.1) Chloride Level 97 mmol/L (98-107) Carbon Dioxide Level 29 mmol/L (21-32) Anion Gap 10 (6-14) Blood Urea Nitrogen 9 mg/dL (8-26) Creatinine 0.9 mg/dL (0.7-1.3) Estimated GFR (Cockcroft-Gault) 107.6 Glucose Level 55 mg/dL (70-99) Calcium Level 8.8 mg/dL (8.5-10.1) Objective Assessment Fever Leukocytosis Lactic acidosis, better Ulcerations of glans penis Eschar wounds of scrotum and left thigh, now new lesions developing on back and legs Herpetic lesions oral cavity & pharynx Plan Plan of Care vanc and Zosyn, Valtrex Await HSV PCR and cultures await urine chlamydia and gonorrhea Reportedly HIV status neg, donates plasma. Monitor labs Pain management per primary Consult derm Attending Co-Sign The patient was seen and interviewed as well as examined at the bedside. The chart was reviewed. The case was discussed. Agree with the plan of care. MICHELLE GARCIA APRN Jan 01, 2017 12:54 ROSAURA NEWSOME MD Jan 01, 2017 13:23
[2017-01-01] MEDS: VANCOMYCIN PER PHARMACY MC PRN (14:26)
[2017-01-01] MEDS: PANTOPRAZOLE IV PUSH 40 MG VIAL. IVP SCH (15:01)
[2017-01-01] MEDS ORDERED: fentaNYL 25MCG/HR PATCH 1 PATCH PATCH.TD72 TD SCH (15:30)
--- NOTE | 2017-01-01 16:20 | RAD ---
EXAM: Chest one view. HISTORY: Chest pain. COMPARISON: 12/30/2016. FINDINGS: A frontal view of the chest is obtained. There are no confluent infiltrates. There is no pneumothorax or pleural effusion. The heart is not enlarged. IMPRESSION: 1. No confluent infiltrates.
--- NOTE | 2017-01-01 16:43 | CONS ---
DATE OF CONSULTATION: 12/30/2016 REFERRING PHYSICIAN: REASON FOR CONSULTATION: Cellulitis. 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 He travelled by vehicle to [place], [place] between 12/19/2016 and 12/23/2016. He spent his time working and staying near the hotel. The day prior to returning home, he noticed a small nonpruritic nonpainful red area on the left inner thigh. Over the following few days, he developed additional areas of redness that progressed to black necrotic appearing ulcers on the scrotum. In addition, he developed painful blisters on the tip of his penis and oral cavity and throat. He was seen by his primary care provider, Dr. Ndiaye, and reportedly had blood in urine test done. Results of those tests are not available. He had been on doxycycline, Valtrex, and metronidazole for the past 5 days with worsening symptoms. He recalled having 3 sexual female partners within the last year and always used condoms. He denies oral sex or sex with males. He denies history of sexually transmitted diseases. For the past 2 years, he has donated plasma and gets checked for HIV regularly, which reportedly has been negative. He is not aware of being in close contact with individuals with similar symptoms. He denies ticks or insect bites. He denies history of similar episodes. He continues not to feel well. He is complaining of a sore throat with painful swallow, generalized ache, chills, fever, and painful urination. Denies headache, cough, or shortness of air. Denies nausea, vomiting, or diarrhea. He reports having penile discharge. PAST MEDICAL HISTORY: No significant past medical history. PAST SURGICAL HISTORY: No significant past surgical history. SOCIAL HISTORY: The patient is single. 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 Denies alcohol. History of marijuana. Multiple tattoos and piercings reportedly using clean needles, some, but not all professionally done. ALLERGIES: No known drug allergies. FAMILY HISTORY: Noncontributory. MEDICATIONS: Vancomycin and Zosyn. Other medications are available and had been reviewed on the MAR. REVIEW OF SYSTEMS: As per HPI, otherwise, all review systems are negative. PHYSICAL EXAMINATION: GENERAL: male, grimacing and softly moaning. VITAL SIGNS: Temperature is 98.8, T-max 100.9, blood pressure 124/74, heart rate 98, respiratory rate 16, pulse oximetry 93% on room air. Weight is 182 pounds. HEENT: Pupils equally round and reactive. Normal conjunctivae. Oral mucosa is pink with multiple herpetic-type ulcers on the tongue, soft palate and anterior pillars. NECK: Supple. LUNGS: Clear to auscultation. HEART: Normal S1, S2. ABDOMEN: Not distended. Bowel sounds are present, soft, nontender. EXTREMITIES: No gross edema or cyanosis. SKIN: He has several annular necrotic appearing ulcers on scrotum and one on the left inner thigh. He has several ulcerations on glans. Penis is uncircumcised. NEUROLOGIC: Alert and oriented x 3. Moves all extremities. LABORATORY DATA: Today's WBC 14.3 from 17.5 on admission, hemoglobin 15.1, platelet count 276,000. Sodium 140, potassium 3.2, creatinine 1.1, BUN 10, glucose 69. Lactic acid 0.9 from 2.5 on admission, total bilirubin 0.6, AST 13, ALT 15, albumin 3.5. Urinalysis unremarkable for infection. Group A strep rapid test negative. Blood cultures negative to date. Chest x-ray shows no confluent infiltrates, pneumothorax or pleural effusions. Heart not enlarged. IMPRESSION: 1. Fever. 2. Leukocytosis. 3. Lactic acidosis. 4. Ulceration at the glans. Penis with eschar wounds of scrotum and left thigh. 5. Herpetic lesions of oral cavity and pharynx. PLAN: For now, continue the vancomycin and Zosyn and add antiviral agent, Valtrex. Await HSV PCR and cultures. Check urine for chlamydia and gonorrhea. Monitor response and laboratory values. Pain management per primary. Thank you, . , for asking us to participate in this patient's care. Should you have further questions or concerns, please call. The patient was seen and examined and plan of care implemented by Dr. José Newsome. JOSÉ NEWSOME MD DR: PAOLA/christoph JOB#: [id number] / [id number]
[2017-01-01 23:07] LABS: HERPES SIMPLEX TYPE 1 Negative (Negative); HERPES SIMPLEX TYPE 2 Negative (Negative)
[2017-01-02] MEDS: HYDROmorphone 2 MG/ML VIAL IV PRN ×8 (00:41→21:07)
[2017-01-02] MEDS: AMINO AC 3%/ELECTROLYTE/GLYCER 1,000 ML IV SCH ×2 (02:00→18:29)
[2017-01-02 03:00] VITALS: BP 132/82
[2017-01-02] MEDS: VANCOMYCIN 1.25 GM in IV NORMAL SALINE 250ML 250 ML IV SCH ×3 (04:14→20:32)
[2017-01-02 04:37] LABS: BASO % 0 % (0-3); EOS % 1 % (0-3); HEMATOCRIT 44.6 % (39.0-53.0); HEMOGLOBIN 15.1 g/dL (13.0-17.5); LYMPH # 2.1 x10^3/uL (1.0-4.8); LYMPH % 16 % (24-48); MEAN CORPUSCULAR HEMOGLOBIN 29 pg (25-35); MEAN CORPUSCULAR HGB CONC 34 g/dL (31-37); MEAN CORPUSCULAR VOLUME 85 fL (79-100); MONO % 12 % (0-9); NEUT % 71 % (31-73); PLATELET COUNT 273 x10^3/uL (140-400); RED BLOOD COUNT 5.23 x10^6/uL (4.30-5.70); RED CELL DISTRIBUTION WIDTH 13.2 % (11.5-14.5); WHITE BLOOD COUNT 12.7 x10^3/uL (4.0-11.0)
[2017-01-02 05:17] LABS: CALCIUM 8.5 mg/dL (8.5-10.1); CREATININE 0.9 mg/dL (0.7-1.3); GFR 107.6; POTASSIUM 3.3 mmol/L (3.5-5.1)
[2017-01-02] MEDS: PANTOPRAZOLE IV PUSH 40 MG VIAL. IVP SCH (05:50)
[2017-01-02] MEDS: PIPERACILLIN/TAZOBACTAM 4.5 GM in IV NORMAL SALINE 100ML 100 ML IV SCH ×3 (05:50→17:54)
[2017-01-02] MEDS: HYDROcodone/APAP 5/325MG 1 TAB TABLET PO PRN (05:55)
[2017-01-02 07:00] VITALS: BP 113/68
[2017-01-02] MEDS: valACYclovir 500 MG TABLET. PO SCH ×3 (08:51→21:02)
--- NOTE | 2017-01-02 09:27 | PDOC ---
Infectious Disease Note Subjective Subjective still a lot of throat pain ROS ROS GEN: Denies fevers, chills, sweats HEENT: Denies blurred vision, sore throat CV: Denies chest pain RESP: Denies shortness of air, cough GI: Denies n/v/d NEURO: Denies confusion, dizziness MSK: Denies weakness, joint pain/swelling Vital Sign Vital Signs Vital Signs Date Time Temp Pulse Resp B/P (MAP) Pulse Ox O2 Delivery O2 Flow Rate FiO2 01/02/17 09:22 Room Air 01/02/17 07:00 99.1 110 20 113/68 (83) 94 99.1 Physical Exam PHYSICAL EXAM GENERAL: NAD, Alert HEENT: PERRL, OC/OP,, mouth ulcers NECK: Supple, no JVD, no LN LUNGS: Clear HEART: S1S2, no gallop, no murmur ABD: Soft, NT, no organomegaly, no rebound EXT: No edema, no cyanosis [employer] MATE M: Alert, oriented x 3, no focal neurologic deficit SKIN: rash ++ IV: ok Labs Lab Laboratory Tests Test 01/02/17 03:20 White Blood Count 12.7 x10^3/uL (4.0-11.0) Red Blood Count 5.23 x10^6/uL (4.30-5.70) Hemoglobin 15.1 g/dL (13.0-17.5) Hematocrit 44.6 % (39.0-53.0) Mean Corpuscular Volume 85 fL (79-100) Mean Corpuscular Hemoglobin 29 pg (25-35) Mean Corpuscular Hemoglobin Concent 34 g/dL (31-37) Red Cell Distribution Width 13.2 % (11.5-14.5) Platelet Count 273 x10^3/uL (140-400) Neutrophils (%) (Auto) 71 % (31-73) Lymphocytes (%) (Auto) 16 % (24-48) Monocytes (%) (Auto) 12 % (0-9) Eosinophils (%) (Auto) 1 % (0-3) Basophils (%) (Auto) 0 % (0-3) Neutrophils # (Auto) 9.0 x10^3uL (1.8-7.7) Lymphocytes # (Auto) 2.1 x10^3/uL (1.0-4.8) Monocytes # (Auto) 1.5 x10^3/uL (0.0-1.1) Eosinophils # (Auto) 0.1 x10^3/uL (0.0-0.7) Basophils # (Auto) 0.0 x10^3/uL (0.0-0.2) Sodium Level 136 mmol/L (136-145) Potassium Level 3.3 mmol/L (3.5-5.1) Chloride Level 97 mmol/L (98-107) Carbon Dioxide Level 32 mmol/L (21-32) Anion Gap 7 (6-14) Blood Urea Nitrogen 7 mg/dL (8-26) Creatinine 0.9 mg/dL (0.7-1.3) Estimated GFR (Cockcroft-Gault) 107.6 Glucose Level 91 mg/dL (70-99) Calcium Level 8.5 mg/dL (8.5-10.1) Objective Assessment Fever Leukocytosis Lactic acidosis, better Ulcerations of glans penis Eschar wounds of scrotum and left thigh, now new lesions developing on back and legs Ulcers oral cavity & pharynx Plan Plan of Care vanc and Zosyn, Valtrex HSV PCR and cultures neg await urine chlamydia and gonorrhea Reportedly HIV status neg, donates plasma. Monitor labs Pain management per primary Consult derm consult Rheum, ? behecets or riters ROSAURA NEWSOME MD Jan 02, 2017 09:27
[2017-01-02] MEDS: VANCOMYCIN PER PHARMACY MC PRN (10:42)
[2017-01-02 11:00] VITALS: BP 133/78
[2017-01-02] MEDS ORDERED: BENZOCAINE/MENTHOL LOZENGE. PO PRN (11:00)
--- NOTE | 2017-01-02 11:41 | PDOC ---
PROGRESS NOTES Chief Complaint Chief Complaint cc: cellulitis A/P 1. Multiple vesiculopapular rashes with escar lesion on scrotum and blisters oral mucosa, bl ext red papular lesions : ON Zosyn and Vancomycin, work up pending, ID following, rheum and derm consult 2. Rash on glans penis. 3. Hypokalemia.: replaced, continue iv hydration, 4. Leukocytosis.: monitor 5. Intractable pain: started on IV Dilaudid prn 6. Dehydration with hypoglycemia. decreased oral intake due to pain, start on PPN and IV dextrose. still very sore throat with low po intake, change diet to full liquid, add lozenge, increase dilaudid to 2mg iv q3h prn, add percocet . on fentanyl 25mcg patch. cont ivf, replete K. herpes Neg, other labs pending. History of Present Illness History of Present Illness pain 10, in mouth and groin region, mild fevers low K low po intake require pain meds Vitals Vitals Vital Signs Date Time Temp Pulse Resp B/P (MAP) Pulse Ox O2 Delivery O2 Flow Rate FiO2 01/02/17 11:00 100.0 108 20 133/78 (96) 95 Room Air 100.0 Physical Exam General: Alert, Oriented X3 Heart: Normal S1 Lungs: Clear Abdomen: Normal bowel sounds, Soft Extremities: No clubbing Skin: Other (multiple papular red skin lesion on ext, bl scrotum escar lesions) Labs LABS Laboratory Tests Test 01/02/17 03:20 White Blood Count 12.7 x10^3/uL (4.0-11.0) Red Blood Count 5.23 x10^6/uL (4.30-5.70) Hemoglobin 15.1 g/dL (13.0-17.5) Hematocrit 44.6 % (39.0-53.0) Mean Corpuscular Volume 85 fL (79-100) Mean Corpuscular Hemoglobin 29 pg (25-35) Mean Corpuscular Hemoglobin Concent 34 g/dL (31-37) Red Cell Distribution Width 13.2 % (11.5-14.5) Platelet Count 273 x10^3/uL (140-400) Neutrophils (%) (Auto) 71 % (31-73) Lymphocytes (%) (Auto) 16 % (24-48) Monocytes (%) (Auto) 12 % (0-9) Eosinophils (%) (Auto) 1 % (0-3) Basophils (%) (Auto) 0 % (0-3) Neutrophils # (Auto) 9.0 x10^3uL (1.8-7.7) Lymphocytes # (Auto) 2.1 x10^3/uL (1.0-4.8) Monocytes # (Auto) 1.5 x10^3/uL (0.0-1.1) Eosinophils # (Auto) 0.1 x10^3/uL (0.0-0.7) Basophils # (Auto) 0.0 x10^3/uL (0.0-0.2) Sodium Level 136 mmol/L (136-145) Potassium Level 3.3 mmol/L (3.5-5.1) Chloride Level 97 mmol/L (98-107) Carbon Dioxide Level 32 mmol/L (21-32) Anion Gap 7 (6-14) Blood Urea Nitrogen 7 mg/dL (8-26) Creatinine 0.9 mg/dL (0.7-1.3) Estimated GFR (Cockcroft-Gault) 107.6 Glucose Level 91 mg/dL (70-99) Calcium Level 8.5 mg/dL (8.5-10.1) Review of Systems Review of Systems no fever, chills, sob or chest pain Assessment and Plan Assessmemt and Plan Problems Medical Problems: (1) Cellulitis of scrotum Status: Acute (2) Herpes genitalia Status: Acute (3) Leukocytosis Status: Acute Problems: Comment Review of Relevant I have reviewed the following items nicole (where applicable) has been applied. Labs Laboratory Tests Test 12/31/16 19:15 01/01/17 03:38 01/02/17 03:20 Vancomycin Level Trough 11.1 mcg/mL (10.0-20.0) Vancomycin Last Dose Date Vancomycin Last Dose Time White Blood Count 14.6 x10^3/uL (4.0-11.0) 12.7 x10^3/uL (4.0-11.0) Red Blood Count 5.25 x10^6/uL (4.30-5.70) 5.23 x10^6/uL (4.30-5.70) Hemoglobin 15.1 g/dL (13.0-17.5) 15.1 g/dL (13.0-17.5) Hematocrit 45.4 % (39.0-53.0) 44.6 % (39.0-53.0) Mean Corpuscular Volume 87 fL (79-100) 85 fL (79-100) Mean Corpuscular Hemoglobin 29 pg (25-35) 29 pg (25-35) Mean Corpuscular Hemoglobin Concent 33 g/dL (31-37) 34 g/dL (31-37) Red Cell Distribution Width 13.6 % (11.5-14.5) 13.2 % (11.5-14.5) Platelet Count 279 x10^3/uL (140-400) 273 x10^3/uL (140-400) Neutrophils (%) (Auto) 77 % (31-73) 71 % (31-73) Lymphocytes (%) (Auto) 13 % (24-48) 16 % (24-48) Monocytes (%) (Auto) 10 % (0-9) 12 % (0-9) Eosinophils (%) (Auto) 0 % (0-3) 1 % (0-3) Basophils (%) (Auto) 0 % (0-3) 0 % (0-3) Neutrophils # (Auto) 11.3 x10^3uL (1.8-7.7) 9.0 x10^3uL (1.8-7.7) Lymphocytes # (Auto) 1.8 x10^3/uL (1.0-4.8) 2.1 x10^3/uL (1.0-4.8) Monocytes # (Auto) 1.4 x10^3/uL (0.0-1.1) 1.5 x10^3/uL (0.0-1.1) Eosinophils # (Auto) 0.0 x10^3/uL (0.0-0.7) 0.1 x10^3/uL (0.0-0.7) Basophils # (Auto) 0.1 x10^3/uL (0.0-0.2) 0.0 x10^3/uL (0.0-0.2) Sodium Level 136 mmol/L (136-145) 136 mmol/L (136-145) Potassium Level 3.5 mmol/L (3.5-5.1) 3.3 mmol/L (3.5-5.1) Chloride Level 97 mmol/L (98-107) 97 mmol/L (98-107) Carbon Dioxide Level 29 mmol/L (21-32) 32 mmol/L (21-32) Anion Gap 10 (6-14) 7 (6-14) Blood Urea Nitrogen 9 mg/dL (8-26) 7 mg/dL (8-26) Creatinine 0.9 mg/dL (0.7-1.3) 0.9 mg/dL (0.7-1.3) Estimated GFR (Cockcroft-Gault) 107.6 107.6 Glucose Level 55 mg/dL (70-99) 91 mg/dL (70-99) Calcium Level 8.8 mg/dL (8.5-10.1) 8.5 mg/dL (8.5-10.1) Laboratory Tests Test 01/02/17 03:20 White Blood Count 12.7 x10^3/uL (4.0-11.0) Red Blood Count 5.23 x10^6/uL (4.30-5.70) Hemoglobin 15.1 g/dL (13.0-17.5) Hematocrit 44.6 % (39.0-53.0) Mean Corpuscular Volume 85 fL (79-100) Mean Corpuscular Hemoglobin 29 pg (25-35) Mean Corpuscular Hemoglobin Concent 34 g/dL (31-37) Red Cell Distribution Width 13.2 % (11.5-14.5) Platelet Count 273 x10^3/uL (140-400) Neutrophils (%) (Auto) 71 % (31-73) Lymphocytes (%) (Auto) 16 % (24-48) Monocytes (%) (Auto) 12 % (0-9) Eosinophils (%) (Auto) 1 % (0-3) Basophils (%) (Auto) 0 % (0-3) Neutrophils # (Auto) 9.0 x10^3uL (1.8-7.7) Lymphocytes # (Auto) 2.1 x10^3/uL (1.0-4.8) Monocytes # (Auto) 1.5 x10^3/uL (0.0-1.1) Eosinophils # (Auto) 0.1 x10^3/uL (0.0-0.7) Basophils # (Auto) 0.0 x10^3/uL (0.0-0.2) Sodium Level 136 mmol/L (136-145) Potassium Level 3.3 mmol/L (3.5-5.1) Chloride Level 97 mmol/L (98-107) Carbon Dioxide Level 32 mmol/L (21-32) Anion Gap 7 (6-14) Blood Urea Nitrogen 7 mg/dL (8-26) Creatinine 0.9 mg/dL (0.7-1.3) Estimated GFR (Cockcroft-Gault) 107.6 Glucose Level 91 mg/dL (70-99) Calcium Level 8.5 mg/dL (8.5-10.1) Microbiology 12/30/16 Blood Culture - Preliminary, Resulted NO GROWTH AFTER 2 DAYS 12/30/16 Gram Stain - Final, Complete 12/30/16 Throat Culture - Preliminary, Resulted 12/30/16 - Preliminary, Resulted 12/30/16 Gram Stain - Final, Complete Medications Current Medications Sodium Chloride 1,000 ml @ 0 mls/hr 1X ONCE IV Last administered on 16:10; Start 12/30/16 at 15:45; Stop 12/30/16 at 16:06; Status DC Sodium Chloride (Normal Saline Flush) 3 ml QSHIFT PRN IV AFTER MEDS AND BLOOD DRAWS; Start 12/30/16 at 15:45 Morphine Sulfate 2 mg 1X ONCE IV Last administered on 12/30/16 16:11; Start 12/30/16 at 15:45; Stop 12/30/16 at 16:06; Status DC Ondansetron HCl (Zofran) 4 mg PRN Q6HRS PRN IV NAUSEA/VOMITING Last administered on 12/30/16 16:10; Start 12/30/16 at 15:45; Stop 12/30/16 at 19:05 ; Status DC Ondansetron HCl (Zofran) 4 mg STK-MED ONCE .ROUTE ; Start 12/30/16 at 16:06; Stop 12/30/16 at 16:07; Status DC Morphine Sulfate 2 mg STK-MED ONCE .ROUTE ; Start 12/30/16 at 16:06; Stop at 16:07; Status DC Ceftriaxone Sodium 50 ml @ 100 mls/hr 1X ONCE IV Last administered on 17:46; Start 12/30/16 at 17:15; Stop 12/30/16 at 17:44; Status DC Vancomycin HCl 2 gm/Sodium Chloride 500 ml @ 250 mls/hr 1X ONCE IV Last administered on 12/30/16 21:09; Start 12/30/16 at 17:15; Stop 12/30/16 at 19:14 ; Status DC Sodium Chloride 1,000 ml @ 1,000 mls/hr 1X ONCE IV Last administered on 17:46; Start 12/30/16 at 17:30; Stop 12/30/16 at 18:29; Status DC Piperacillin Sod/ Tazobactam Sod 4.5 gm/Sodium Chloride 100 ml @ 200 mls/hr 1X ONCE IV Last administered on 12/30/16 18:18; Start 12/30/16 at 18:00; Stop 12/30/16 at 18:29; Status DC Vancomycin HCl (Vanco Per Pharmacy) 1 each PRN DAILY PRN MC SEE COMMENTS Last administered on 01/02/17 10:42; Start 12/30/16 at 18:00 Ondansetron HCl (Zofran) 4 mg PRN Q8HRS PRN IV NAUSEA/VOMITING; Start 12/30/16 at 18:00; Stop 12/31/16 at 13:16; Status DC Morphine Sulfate 2 mg PRN Q2HR PRN IV PAIN Last administered on 12/31/16 08:15 ; Start 12/30/16 at 18:00; Stop 12/31/16 at 08:38; Status DC Piperacillin Sod/ Tazobactam Sod 4.5 gm/Sodium Chloride 100 ml @ 200 mls/hr Q6HRS IV Last administered on 01/02/17 05:50; Start 12/31/16 at 00:00 Acetaminophen (Tylenol) 325 mg PRN Q6HRS PRN PO MILD PAIN / TEMP Last administered on 12/31/16 23:07; Start 12/30/16 at 19:00; Stop 12/31/16 at 23:13 ; Status DC Acetaminophen/ Hydrocodone Bitart (Lortab 5/325) 1 tab PRN Q6HRS PRN PO MODERATE TO SEVERE PAIN Last administered on 01/02/17 05:55; Start 12/30/16 at 19:00 Hydralazine HCl (Apresoline) 10 mg PRN Q4HRS PRN IVP ELEVATED BP, SEE COMMENTS ; Start 12/30/16 at 19:00 Ondansetron HCl (Zofran) 4 mg PRN Q8HRS PRN IV NAUSEA/VOMITING Last administered on 12/31/16 16:31; Start 12/30/16 at 19:00 Albuterol Sulfate (Ventolin Neb Soln) 2.5 mg PRN Q4HRS PRN NEB SHORTNESS OF BREATH; Start 12/30/16 at 19:00 Hydromorphone HCl (Dilaudid) 1 mg 1X ONCE IM ; Start 12/30/16 at 19:30; Stop at 19:31; Status DC Vancomycin HCl 1.25 gm/Sodium Chloride 250 ml @ 167 mls/hr Q8H IV Last administered on 01/02/17 04:14; Start 12/31/16 at 04:00 Vancomycin HCl 1 each 1X ONCE MC Last administered on 12/31/16 19:30; Start 12/31/16 at 19:30; Stop 12/31/16 at 19:31; Status DC Sodium Chloride 1,000 ml @ 75 mls/hr [id number] IV Last administered on 00:18; Start 12/31/16 at 00:15; Stop 12/31/16 at 15:40; Status DC Lidocaine HCl (Viscous Lidocaine) 15 ml PRN Q4HRS PRN SWSW MOUTH PAIN Last administered on 12/31/16 02:01; Start 12/31/16 at 01:30 Hydromorphone HCl (Dilaudid) 0.5 mg PRN Q2HRS PRN IV PAIN Last administered on 12/31/16 14:55; Start 12/31/16 at 08:45; Stop 12/31/16 at 16:05; Status DC Acetaminophen (Acetaminophen Supp) 650 mg PRN Q6HRS PRN [place] MILD PAIN / TEMP; Start 12/31/16 at 08:45 Potassium Chloride 40 meq/ Dextrose 1,020 ml @ 75 mls/hr 1X ONCE IV Last administered on 12/31/16 12:30; Start 12/31/16 at 12:00; Stop 01/01/17 at 01:35 ; Status DC Hydromorphone HCl (Dilaudid) 1 mg PRN Q2HR PRN IV PAIN Last administered on 08:52; Start 12/31/16 at 16:00; Stop 01/02/17 at 11:01; Status DC Amino Acids/ Glycerin/ Electrolytes 1,000 ml @ 80 mls/hr [id number] IV Last administered on 01/02/17 02:00; Start 12/31/16 at 16:30 Valacyclovir HCl (Valtrex) 1,000 mg TID PO Last administered on 01/02/17 08:51 ; Start 12/31/16 at 16:30 Acetaminophen (Tylenol) 650 mg PRN Q6HRS PRN PO MILD PAIN / TEMP Last administered on 01/01/17 21:29; Start 12/31/16 at 23:15 Acetaminophen (Tylenol) 325 mg 1X ONCE PO Last administered on 12/31/16 23:19 ; Start 12/31/16 at 23:30; Stop 12/31/16 at 23:31; Status DC Dextrose/Sodium Chloride 1,000 ml @ 40 mls/hr Q24H IV Last administered on 10:58; Start 01/01/17 at 11:00 Guaifenesin (Mucinex) 600 mg BID PO Last administered on 01/02/17 08:51; Start 01/01/17 at 13:00 Throat Lozenges (Chloraseptic) 1 spray PRN Q2HR PRN PO SORE THROAT Last administered on 01/01/17 14:43; Start 01/01/17 at 12:30 Fentanyl (Duragesic 25mcg/ Hr Patch) 1 patch Q3DAYS TD Last administered on 14:56; Start 01/01/17 at 15:30; Stop 01/02/17 at 10:54; Status DC Pantoprazole Sodium (Protonix Vial) 40 mg DAILYAC IVP Last administered on 01/02 05:50; Start 01/01/17 at 15:30 Potassium Chloride 100 ml @ 100 mls/hr Q1H IV ; Start 01/02/17 at 10:00; Stop 01/02/17 at 11:59 Fentanyl (Duragesic 25mcg/ Hr Patch) 1 patch Q3DAYS TD ; Start 01/02/17 at 11:00 Hydromorphone HCl (Dilaudid) 2 mg PRN Q3HRS PRN IV PAIN; Start 01/02/17 at 16: 00; Stop 01/02/17 at 16:00; Status DC Throat Lozenges (Cepacol Sore Throat Lozenge) 1 sonya PRN Q2HRS PRN PO SORE THROAT; Start 01/02/17 at 11:00 Hydromorphone HCl (Dilaudid) 2 mg PRN Q3HRS PRN IV PAIN; Start 01/02/17 at 11: 00 Active Scripts Active Reported Metronidazole 500 Mg Tablet 1 Tab PO BID Valtrex (Valacyclovir Hcl) 1,000 Mg Tablet 1 Tab PO Q8HRS Doxycycline Hyclate 100 Mg Capsule 1 Cap PO BID Vitals/I & O Vital Sign - Last 24 Hours 01/01/17 01/01/17 01/01/17 01/01/17 12:39 14:37 14:54 14:55 Temp 99.5 99.5 Pulse 104 Resp 16 18 16 16 B/P (MAP) 126/86 (99) O2 Delivery Room Air Room Air Room Air Room Air 01/01/17 01/01/17 01/01/17 01/01/17 14:56 15:00 15:55 17:28 Temp 100.2 100.2 Pulse 105 Resp 16 20 16 16 B/P (MAP) 122/74 (90) Pulse Ox 92 O2 Delivery Room Air Room Air Room Air 01/01/17 01/01/17 01/01/17 01/01/17 18:56 19:00 19:50 20:00 Temp 100.4 100.4 Pulse 119 Resp 16 18 20 B/P (MAP) 127/78 (94) Pulse Ox 94 96 O2 Delivery Room Air Room Air Room Air Room Air 01/01/17 01/01/17 01/02/17 01/02/17 21:55 23:00 00:41 03:00 Temp 98.6 100.1 98.6 100.1 Pulse 105 106 Resp 20 18 20 18 B/P (MAP) 124/77 (93) 132/82 (99) Pulse Ox 96 95 95 95 O2 Delivery Room Air Room Air Room Air Room Air 01/02/17 01/02/17 01/02/17 01/02/17 03:31 04:01 05:55 06:38 Resp 20 20 20 20 Pulse Ox 95 95 95 95 O2 Delivery Room Air Room Air Room Air 01/02/17 01/02/17 01/02/17 01/02/17 07:00 07:35 08:52 09:22 Temp 99.1 99.1 Pulse 110 Resp 20 B/P (MAP) 113/68 (83) Pulse Ox 94 O2 Delivery Room Air Room Air Room Air Room Air 01/02/17 11:00 Temp 100.0 100.0 Pulse 108 Resp 20 B/P (MAP) 133/78 (96) Pulse Ox 95 O2 Delivery Room Air Intake and Output 01/01/17 01/01/17 01/02/17 15:00 23:00 07:00 Intake Total 920 ml 900 ml Output Total 800 ml 600 ml Balance 120 ml 300 ml RENZO FUNK MD Jan 02, 2017 11:41
[2017-01-02] MEDS: fentaNYL 25MCG/HR PATCH 1 PATCH PATCH.TD72 TD SCH (12:02)
[2017-01-02] MEDS: IV DEXTROSE 5% - 0.9 % NACL 1,000 ML IV SCH (12:14)
[2017-01-02] MEDS: predniSONE 10 MG TABLET PO SCH (12:59)
[2017-01-02] MEDS: POTASSIUM CHLORIDE 10MEQ 100 ML IV SCH ×2 (14:45→16:15)
[2017-01-02 15:00] VITALS: BP 123/75
[2017-01-02] MEDS ORDERED: HYDROmorphone 2 MG/ML VIAL IV PRN (16:00)
[2017-01-02 19:35] VITALS: BP 124/73
[2017-01-02 23:02] VITALS: BP 131/58
[2017-01-03] MEDS: PIPERACILLIN/TAZOBACTAM 4.5 GM in IV NORMAL SALINE 100ML 100 ML IV SCH ×2 (00:09→05:41)
[2017-01-03] MEDS: AMINO AC 3%/ELECTROLYTE/GLYCER 1,000 ML IV SCH ×2 (00:10→18:22)
[2017-01-03] MEDS: HYDROmorphone 2 MG/ML VIAL IV PRN ×7 (01:24→21:57)
--- NOTE | 2017-01-03 03:14 | CONS ---
DATE OF CONSULTATION: 01/02/2017 CARDIOLOGY CONSULTATION REQUESTING PHYSICIAN: Dr. José Byrd MD REASON FOR CONSULTATION: Oral ulcerations with rash and joint pain. HISTORY OF PRESENT ILLNESS: The patient is a 21-year-old single male who visited [place] between 12/19/2016 and 12/23/2016 for the concert, started to have a rash on the left thigh. Then it gradually spread to the scrotal area and developed the ulcers on the scrotal and penis. Then he also developed multiple ulcers in the mouth, so he came to the Emergency Room because of this rash on the legs, ulcers, and fever and joint pain. So for further evaluation and management, Rheumatology consultation has been requested. He complains of pain and swelling in both knees and left ankle, achy, constant, exacerbates with activity. He denies any previous episode of joint pain or joint swelling. He has also developed the rash on both legs and lower back. PAST MEDICAL HISTORY: None. PAST SURGICAL HISTORY: None. SOCIAL HISTORY: He is single. He denies any current smoking or alcohol abuse. FAMILY HISTORY: Negative for any autoimmune disease. ALLERGIES: No known drug allergies. MEDICATIONS: I have reviewed the list of medications. REVIEW OF SYSTEMS: All other systems are reviewed and negative except for HPI. PHYSICAL EXAMINATION: GENERAL: He is awake, alert, oriented x 3, not in acute distress. VITAL SIGNS: Revealed temperature 100, pulse 108, respiration rate 20, blood pressure 133/78. SKIN: He does have the two different kind of rash with maculopapular rash on the lower extremities as well as soft, tender, erythematous nodules on the legs. HEENT: Normocephalic, atraumatic head with ulcers in mouth, as well as on the tongue. NECK: Supple. HEART: S1, S2 regular. LUNGS: Clear to auscultation. EXTREMITIES: No pitting edema. MUSCULOSKELETAL: Reveals active synovitis with warmth, swelling and severe tenderness on both knees and the left ankle. LABORATORY DATA: I have reviewed his laboratory test results and his WBC is still 12.7, hemoglobin 15.1, platelet 273, creatinine is 0.9. ASSESSMENT: 1. Polyarthralgia. 2. Inflammatory arthritis. 3. Oral and penile ulceration. 4. Skin rash. 5. Fever. 6. Leukocytosis. He is a very interesting and complicated case. Because of the short duration and absence of any previous history, any autoimmune disease would be unlikely. In my opinion, clinically he has some infections, most likely viral etiology. He is already on broad spectrum antibiotic, as well as antiviral, so I will start him on prednisone 30 mg every day. He can use any symptomatic analgesic for his pain. I am not requesting any further test at this time. Wait for the Dermatology opinion also. Thank you for allowing me to participate in his care. If you have any question, please do not hesitate to contact me. RAJ ROMANO MD DR: PETAR/christoph JOB#: [id number] / [id number]
[2017-01-03 03:45] VITALS: BP 136/62
[2017-01-03] MEDS: VANCOMYCIN 1.25 GM in IV NORMAL SALINE 250ML 250 ML IV SCH (04:34)
[2017-01-03 07:00] VITALS: BP 137/90
[2017-01-03 07:08] LABS: BASO % 0 % (0-3); EOS % 0 % (0-3); HEMATOCRIT 44.8 % (39.0-53.0); HEMOGLOBIN 15.2 g/dL (13.0-17.5); LYMPH # 1.9 x10^3/uL (1.0-4.8); LYMPH % 19 % (24-48); MEAN CORPUSCULAR HEMOGLOBIN 29 pg (25-35); MEAN CORPUSCULAR HGB CONC 34 g/dL (31-37); MEAN CORPUSCULAR VOLUME 86 fL (79-100); MONO % 15 % (0-9); NEUT % 65 % (31-73); PLATELET COUNT 334 x10^3/uL (140-400); RED BLOOD COUNT 5.24 x10^6/uL (4.30-5.70); RED CELL DISTRIBUTION WIDTH 13.5 % (11.5-14.5); WHITE BLOOD COUNT 10.1 x10^3/uL (4.0-11.0)
[2017-01-03 07:10] LABS: CALCIUM 8.5 mg/dL (8.5-10.1); CREATININE 0.7 mg/dL (0.7-1.3); GFR 143.8; POTASSIUM 4.4 mmol/L (3.5-5.1)
[2017-01-03] MEDS: PANTOPRAZOLE IV PUSH 40 MG VIAL. IVP SCH (08:14)
[2017-01-03] MEDS ORDERED: PANTOPRAZOLE IV PUSH 40 MG VIAL. IVP SCH (08:45)
--- NOTE | 2017-01-03 08:51 | PDOC ---
PROGRESS NOTES Chief Complaint Chief Complaint Scrotal cellulitis Oral mucositis ASSESSMENT AND PLAN: 1. Rash/cellulitis: HSV PCR neg, cult neg. empiric Zosyn,Vanc; valtrex stopped today; d/w Dr Byrd. derm consult pending 2. Polyarthritis: appreciate rheum consult; started on prednisone 3. Leukocytosis: reactive, trending down; monitor 4. Intractable pain: IV Dilaudid PRN, Percocet. throat spray and lozenges 5. Dehydration: 2/2 poor oral intake. started on PPN. Full liquid diet 6. Hypoglycemia: resolved w/ IVF 7. Hypokalemia: replaced, continue IV hydration 8. Prophylaxis: PPI, lovenox History of Present Illness History of Present Illness throat still very sore, making PO intake difficult. tolerating some liquids Vitals Vitals Vital Signs Date Time Temp Pulse Resp B/P (MAP) Pulse Ox O2 Delivery O2 Flow Rate FiO2 01/03/17 07:00 96.3 78 18 137/90 (106) 98 Room Air 96.3 Physical Exam General: Alert, Oriented X3, Cooperative, No acute distress Heart: Regular rate Lungs: Clear Abdomen: Normal bowel sounds, Soft Extremities: No clubbing Skin: Other (multiple papular red skin lesion on ext, bl scrotum escar lesions. blisters on soft palate) Labs LABS Laboratory Tests Test 01/03/17 05:30 White Blood Count 10.1 x10^3/uL (4.0-11.0) Red Blood Count 5.24 x10^6/uL (4.30-5.70) Hemoglobin 15.2 g/dL (13.0-17.5) Hematocrit 44.8 % (39.0-53.0) Mean Corpuscular Volume 86 fL (79-100) Mean Corpuscular Hemoglobin 29 pg (25-35) Mean Corpuscular Hemoglobin Concent 34 g/dL (31-37) Red Cell Distribution Width 13.5 % (11.5-14.5) Platelet Count 334 x10^3/uL (140-400) Neutrophils (%) (Auto) 65 % (31-73) Lymphocytes (%) (Auto) 19 % (24-48) Monocytes (%) (Auto) 15 % (0-9) Eosinophils (%) (Auto) 0 % (0-3) Basophils (%) (Auto) 0 % (0-3) Neutrophils # (Auto) 6.6 x10^3uL (1.8-7.7) Lymphocytes # (Auto) 1.9 x10^3/uL (1.0-4.8) Monocytes # (Auto) 1.6 x10^3/uL (0.0-1.1) Eosinophils # (Auto) 0.0 x10^3/uL (0.0-0.7) Basophils # (Auto) 0.0 x10^3/uL (0.0-0.2) Sodium Level 139 mmol/L (136-145) Potassium Level 4.4 mmol/L (3.5-5.1) Chloride Level 100 mmol/L (98-107) Carbon Dioxide Level 32 mmol/L (21-32) Anion Gap 7 (6-14) Blood Urea Nitrogen 10 mg/dL (8-26) Creatinine 0.7 mg/dL (0.7-1.3) Estimated GFR (Cockcroft-Gault) 143.8 Glucose Level 90 mg/dL (70-99) Calcium Level 8.5 mg/dL (8.5-10.1) KAYLEE ARMAS MD Jan 03, 2017 08:51
[2017-01-03] MEDS: ENOXAPARIN 40 MG/0.4 ML SYRINGE. SQ SCH (09:00)
[2017-01-03] MEDS: predniSONE 10 MG TABLET PO SCH (09:27)
[2017-01-03] MEDS: valACYclovir 500 MG TABLET. PO SCH (09:27)
[2017-01-03] MEDS: oxyCODONE/APAP 5/325 1 TAB TABLET PO PRN (09:28)
--- NOTE | 2017-01-03 10:02 | PDOC ---
Infectious Disease Note Subjective Subjective feeling better ROS ROS GEN: Denies fevers, chills, sweats HEENT: Denies blurred vision, sore throat CV: Denies chest pain RESP: Denies shortness of air, cough GI: Denies n/v/d NEURO: Denies confusion, dizziness MSK: Denies weakness, joint pain/swelling Vital Sign Vital Signs Vital Signs Date Time Temp Pulse Resp B/P (MAP) Pulse Ox O2 Delivery O2 Flow Rate FiO2 01/03/17 09:28 Room Air 01/03/17 07:00 96.3 78 18 137/90 (106) 98 96.3 Physical Exam PHYSICAL EXAM GENERAL: NAD, Alert HEENT: PERRL, OC/OP,, mouth ulcers NECK: Supple, no JVD, no LN LUNGS: Clear HEART: S1S2, no gallop, no murmur ABD: Soft, NT, no organomegaly, no rebound EXT: No edema, no cyanosis OIL SCOUT: Alert, oriented x 3, no focal neurologic deficit SKIN: different type of rash and scrotal lesions IV: ok Labs Lab Laboratory Tests Test 01/03/17 05:30 White Blood Count 10.1 x10^3/uL (4.0-11.0) Red Blood Count 5.24 x10^6/uL (4.30-5.70) Hemoglobin 15.2 g/dL (13.0-17.5) Hematocrit 44.8 % (39.0-53.0) Mean Corpuscular Volume 86 fL (79-100) Mean Corpuscular Hemoglobin 29 pg (25-35) Mean Corpuscular Hemoglobin Concent 34 g/dL (31-37) Red Cell Distribution Width 13.5 % (11.5-14.5) Platelet Count 334 x10^3/uL (140-400) Neutrophils (%) (Auto) 65 % (31-73) Lymphocytes (%) (Auto) 19 % (24-48) Monocytes (%) (Auto) 15 % (0-9) Eosinophils (%) (Auto) 0 % (0-3) Basophils (%) (Auto) 0 % (0-3) Neutrophils # (Auto) 6.6 x10^3uL (1.8-7.7) Lymphocytes # (Auto) 1.9 x10^3/uL (1.0-4.8) Monocytes # (Auto) 1.6 x10^3/uL (0.0-1.1) Eosinophils # (Auto) 0.0 x10^3/uL (0.0-0.7) Basophils # (Auto) 0.0 x10^3/uL (0.0-0.2) Sodium Level 139 mmol/L (136-145) Potassium Level 4.4 mmol/L (3.5-5.1) Chloride Level 100 mmol/L (98-107) Carbon Dioxide Level 32 mmol/L (21-32) Anion Gap 7 (6-14) Blood Urea Nitrogen 10 mg/dL (8-26) Creatinine 0.7 mg/dL (0.7-1.3) Estimated GFR (Cockcroft-Gault) 143.8 Glucose Level 90 mg/dL (70-99) Calcium Level 8.5 mg/dL (8.5-10.1) Micro all cultures neg Objective Assessment Fever Leukocytosis Lactic acidosis, better Ulcerations of glans penis Eschar wounds of scrotum and left thigh, now new lesions developing on back and legs Ulcers oral cavity & pharynx ? autoimmune vs viral Plan Plan of Care d/c vanc and Zosyn, Valtrex HSV PCR and cultures neg urine chlamydia and gonorrhea neg Reportedly HIV status neg, donates plasma. Monitor labs cont steroids Derm input pending d/w ROSAURA Lebron MD Jan 03, 2017 10:02
[2017-01-03 11:00] VITALS: BP 126/87
[2017-01-03] MEDS: IV DEXTROSE 5% - 0.9 % NACL 1,000 ML IV SCH (11:00)
--- NOTE | 2017-01-03 12:33 | PDOC ---
OBJECTIVE Objective young adult with abrupt onset of painful oral and genital ulcers, eroded skin lesions upper legs, arthralgias and leukocytosis. Was being treated for herpes simples (culture PCR negative). Vital Signs Vital Signs Date Time Temp Pulse Resp B/P (MAP) Pulse Ox O2 Delivery O2 Flow Rate FiO2 01/03/17 11:00 97.7 92 18 126/87 (100) 96 Room Air 97.7 01/03/17 10:30 Room Air 01/03/17 10:00 Room Air 01/03/17 09:28 Room Air 01/03/17 09:23 Room Air 01/03/17 07:35 Room Air 01/03/17 07:00 96.3 78 18 137/90 (106) 98 Room Air 96.3 01/03/17 05:40 20 93 Room Air 01/03/17 03:45 98.9 88 20 136/62 (86) 94 Room Air 98.9 01/03/17 01:54 20 93 01/03/17 01:24 20 93 Room Air 01/02/17 23:02 97.9 86 18 131/58 (82) 93 Room Air 97.9 01/02/17 21:07 20 97 Room Air 01/02/17 20:00 Room Air 01/02/17 19:35 97.9 93 18 124/73 (90) 97 Room Air 97.9 01/02/17 17:55 Room Air 01/02/17 16:05 Room Air 01/02/17 15:00 100.8 111 20 123/75 (91) 95 Room Air 100.8 01/02/17 14:46 Room Air I & O Intake and Output 01/03/17 07:00 Intake Total 200 ml Output Total 2900 ml Balance -2700 ml Intake Oral 200 ml Output Urine Total 2900 ml PHYSICAL EXAM Physical Exam punched out erosions mouth especially pharynx and portions of buccal mucosa. erosions glans penis. perianal skin intact today. erosion with crusting upper thighs. knees appear puffy ASSESSMENT/PLAN Assessment/Plan spoke with Dr. Martinez felt this was not clinically consistent with Behcets (I' ve never seen a case) Infection most likely. Suspect enterovirus such as Coxsackie "hand foot and mouth disease" may appear different in adults than kids. Reading up on this I've learned about some severe effects in some patients (cardiac, neurologic). There is no easy way to diagnose this. There is no easy way to treat this either although the textbooks mentions antivirals for immunosuppressed patients or those with very severe disease. I will return later to do a punch biopsy from the leg (I don't have the right stuff with me now) Problems: COMMENT Lab Laboratory Tests Test 01/03/17 05:30 White Blood Count 10.1 x10^3/uL (4.0-11.0) Red Blood Count 5.24 x10^6/uL (4.30-5.70) Hemoglobin 15.2 g/dL (13.0-17.5) Hematocrit 44.8 % (39.0-53.0) Mean Corpuscular Volume 86 fL (79-100) Mean Corpuscular Hemoglobin 29 pg (25-35) Mean Corpuscular Hemoglobin Concent 34 g/dL (31-37) Red Cell Distribution Width 13.5 % (11.5-14.5) Platelet Count 334 x10^3/uL (140-400) Neutrophils (%) (Auto) 65 % (31-73) Lymphocytes (%) (Auto) 19 % (24-48) Monocytes (%) (Auto) 15 % (0-9) Eosinophils (%) (Auto) 0 % (0-3) Basophils (%) (Auto) 0 % (0-3) Neutrophils # (Auto) 6.6 x10^3uL (1.8-7.7) Lymphocytes # (Auto) 1.9 x10^3/uL (1.0-4.8) Monocytes # (Auto) 1.6 x10^3/uL (0.0-1.1) Eosinophils # (Auto) 0.0 x10^3/uL (0.0-0.7) Basophils # (Auto) 0.0 x10^3/uL (0.0-0.2) Sodium Level 139 mmol/L (136-145) Potassium Level 4.4 mmol/L (3.5-5.1) Chloride Level 100 mmol/L (98-107) Carbon Dioxide Level 32 mmol/L (21-32) Anion Gap 7 (6-14) Blood Urea Nitrogen 10 mg/dL (8-26) Creatinine 0.7 mg/dL (0.7-1.3) Estimated GFR (Cockcroft-Gault) 143.8 Glucose Level 90 mg/dL (70-99) Calcium Level 8.5 mg/dL (8.5-10.1) LEXIE CHOUDHURY MD Jan 03, 2017 12:33
[2017-01-03 15:00] VITALS: BP 133/87
[2017-01-03 19:00] VITALS: BP 129/75
--- NOTE | 2017-01-03 21:13 | OP ---
DATE OF SURGERY: DESCRIPTION OF PROCEDURE: After informed signed consent, prep alcohol. Lidocaine with epinephrine local. A 4 mm punch biopsy upper left thigh to Pathology, 4-0 nylon suture. Antibiotic ointment and Band-Aid. Orders written. LEXIE CHOUDHURY MD DR: Kristine JOB#: [id number] / [id number]
[2017-01-03 23:00] VITALS: BP 124/70
[2017-01-04] MEDS: HYDROmorphone 2 MG/ML VIAL IV PRN ×8 (01:10→23:04)
[2017-01-04] MEDS: IV DEXTROSE 5% - 0.9 % NACL 1,000 ML IV SCH (01:16)
[2017-01-04 02:47] VITALS: BP 137/78
[2017-01-04 06:59] LABS: CALCIUM 9.2 mg/dL (8.5-10.1); CREATININE 0.7 mg/dL (0.7-1.3); GFR 143.8; POTASSIUM 3.7 mmol/L (3.5-5.1)
[2017-01-04 07:00] VITALS: BP 130/85
[2017-01-04 07:02] LABS: BASO # 0.1 x10^3/uL (0.0-0.2); BASO % 1 % (0-3); EOS % 1 % (0-3); HEMATOCRIT 45.1 % (39.0-53.0); HEMOGLOBIN 15.3 g/dL (13.0-17.5); LYMPH % 33 % (24-48); MEAN CORPUSCULAR HEMOGLOBIN 29 pg (25-35); MEAN CORPUSCULAR HGB CONC 34 g/dL (31-37); MEAN CORPUSCULAR VOLUME 86 fL (79-100); MONO % 12 % (0-9); NEUT % 53 % (31-73); PLATELET COUNT 343 x10^3/uL (140-400); RED BLOOD COUNT 5.27 x10^6/uL (4.30-5.70); RED CELL DISTRIBUTION WIDTH 13.6 % (11.5-14.5); WHITE BLOOD COUNT 9.1 x10^3/uL (4.0-11.0)
[2017-01-04] MEDS: PANTOPRAZOLE IV PUSH 40 MG VIAL. IVP SCH (08:07)
[2017-01-04] MEDS: predniSONE 10 MG TABLET PO SCH (08:09)
[2017-01-04] MEDS: NEOMY/BACITR/POLYMYXIN OINT PACKET. TP SCH (08:12)
[2017-01-04] MEDS: ENOXAPARIN 40 MG/0.4 ML SYRINGE. SQ SCH (08:13)
--- NOTE | 2017-01-04 08:58 | PDOC ---
Infectious Disease Note Subjective Subjective feeling better ROS ROS GEN: Denies fevers, chills, sweats HEENT: Denies blurred vision, sore throat CV: Denies chest pain RESP: Denies shortness of air, cough GI: Denies n/v/d NEURO: Denies confusion, dizziness MSK: Denies weakness, joint pain/swelling Vital Sign Vital Signs Vital Signs Date Time Temp Pulse Resp B/P (MAP) Pulse Ox O2 Delivery O2 Flow Rate FiO2 01/04/17 07:28 Room Air 01/04/17 07:00 97.7 66 18 130/85 (100) 97 97.7 Physical Exam PHYSICAL EXAM GENERAL: NAD, Alert HEENT: PERRL, OC/OP NECK: Supple, no JVD, no LN LUNGS: Clear HEART: S1S2, no gallop, no murmur ABD: Soft, NT, no organomegaly, no rebound EXT: No edema, no cyanosis,, ulcers ++ MEDICAL OR SURGICAL INSTRUMENT MAKER: Alert, oriented x 3, no focal neurologic deficit SKIN: No rash IV: ok Labs Lab Laboratory Tests Test 01/04/17 05:30 White Blood Count 9.1 x10^3/uL (4.0-11.0) Red Blood Count 5.27 x10^6/uL (4.30-5.70) Hemoglobin 15.3 g/dL (13.0-17.5) Hematocrit 45.1 % (39.0-53.0) Mean Corpuscular Volume 86 fL (79-100) Mean Corpuscular Hemoglobin 29 pg (25-35) Mean Corpuscular Hemoglobin Concent 34 g/dL (31-37) Red Cell Distribution Width 13.6 % (11.5-14.5) Platelet Count 343 x10^3/uL (140-400) Neutrophils (%) (Auto) 53 % (31-73) Lymphocytes (%) (Auto) 33 % (24-48) Monocytes (%) (Auto) 12 % (0-9) Eosinophils (%) (Auto) 1 % (0-3) Basophils (%) (Auto) 1 % (0-3) Neutrophils # (Auto) 4.8 x10^3uL (1.8-7.7) Lymphocytes # (Auto) 3.0 x10^3/uL (1.0-4.8) Monocytes # (Auto) 1.1 x10^3/uL (0.0-1.1) Eosinophils # (Auto) 0.1 x10^3/uL (0.0-0.7) Basophils # (Auto) 0.1 x10^3/uL (0.0-0.2) Sodium Level 139 mmol/L (136-145) Potassium Level 3.7 mmol/L (3.5-5.1) Chloride Level 100 mmol/L (98-107) Carbon Dioxide Level 32 mmol/L (21-32) Anion Gap 7 (6-14) Blood Urea Nitrogen 13 mg/dL (8-26) Creatinine 0.7 mg/dL (0.7-1.3) Estimated GFR (Cockcroft-Gault) 143.8 Glucose Level 97 mg/dL (70-99) Calcium Level 9.2 mg/dL (8.5-10.1) Micro all cultures neg Objective Assessment Fever Leukocytosis Lactic acidosis, better Ulcerations of glans penis Eschar wounds of scrotum and left thigh, now new lesions developing on back and legs Ulcers oral cavity & pharynx ? autoimmune vs viral Plan Plan of Care HSV PCR and cultures neg urine chlamydia and gonorrhea neg Reportedly HIV status neg, donates plasma. Monitor labs cont steroids Derm input appreciated d/w dr Mchugh d/c sukumar from [place] stand point ROSAURA NEWSOME MD Jan 04, 2017 08:58
--- NOTE | 2017-01-04 09:01 | PDOC ---
PROGRESS NOTES Chief Complaint Chief Complaint Scrotal cellulitis Oral mucositis ASSESSMENT AND PLAN: 1. Rash/cellulitis: HSV PCR neg, cult neg. empiric Zosyn,Vanc; d/w Dr Byrd. dermatology following, s/p biopsy. 2. Polyarthritis: appreciate rheum consult; started on prednisone 3. Leukocytosis: reactive, trending down; monitor 4. Intractable pain: IV Dilaudid PRN, Percocet. throat spray and lozenges 5. Dehydration: 2/2 poor oral intake. started on PPN. Full liquid diet 6. Hypoglycemia: resolved w/ IVF 7. Hypokalemia: replaced, continue IV hydration 8. Prophylaxis: PPI, Lovenox History of Present Illness History of Present Illness throat still very sore, making PO intake difficult. tolerating some liquids Vitals Vitals Vital Signs Date Time Temp Pulse Resp B/P (MAP) Pulse Ox O2 Delivery O2 Flow Rate FiO2 01/04/17 07:28 Room Air 01/04/17 07:00 97.7 66 18 130/85 (100) 97 97.7 Physical Exam General: Alert, Oriented X3, Cooperative, No acute distress Heart: Regular rate Lungs: Clear Abdomen: Normal bowel sounds, Soft Extremities: No clubbing Skin: Other (multiple papular red skin lesion on ext, bl scrotum escar lesions. blisters on soft palate) Labs LABS Laboratory Tests Test 01/04/17 05:30 White Blood Count 9.1 x10^3/uL (4.0-11.0) Red Blood Count 5.27 x10^6/uL (4.30-5.70) Hemoglobin 15.3 g/dL (13.0-17.5) Hematocrit 45.1 % (39.0-53.0) Mean Corpuscular Volume 86 fL (79-100) Mean Corpuscular Hemoglobin 29 pg (25-35) Mean Corpuscular Hemoglobin Concent 34 g/dL (31-37) Red Cell Distribution Width 13.6 % (11.5-14.5) Platelet Count 343 x10^3/uL (140-400) Neutrophils (%) (Auto) 53 % (31-73) Lymphocytes (%) (Auto) 33 % (24-48) Monocytes (%) (Auto) 12 % (0-9) Eosinophils (%) (Auto) 1 % (0-3) Basophils (%) (Auto) 1 % (0-3) Neutrophils # (Auto) 4.8 x10^3uL (1.8-7.7) Lymphocytes # (Auto) 3.0 x10^3/uL (1.0-4.8) Monocytes # (Auto) 1.1 x10^3/uL (0.0-1.1) Eosinophils # (Auto) 0.1 x10^3/uL (0.0-0.7) Basophils # (Auto) 0.1 x10^3/uL (0.0-0.2) Sodium Level 139 mmol/L (136-145) Potassium Level 3.7 mmol/L (3.5-5.1) Chloride Level 100 mmol/L (98-107) Carbon Dioxide Level 32 mmol/L (21-32) Anion Gap 7 (6-14) Blood Urea Nitrogen 13 mg/dL (8-26) Creatinine 0.7 mg/dL (0.7-1.3) Estimated GFR (Cockcroft-Gault) 143.8 Glucose Level 97 mg/dL (70-99) Calcium Level 9.2 mg/dL (8.5-10.1) Assessment and Plan Assessmemt and Plan Problems Medical Problems: (1) Cellulitis of scrotum Status: Acute (2) Herpes genitalia Status: Acute (3) Leukocytosis Status: Acute Problems: Comment Review of Relevant I have reviewed the following items nicole (where applicable) has been applied. Labs Laboratory Tests Test 01/02/17 14:12 01/03/17 05:30 01/04/17 05:30 Urine Chlamydia DNA (PCR) Negative (Negative) Neisseria gonorrhoeae DNA (PCR) Negative (Negative) White Blood Count 10.1 x10^3/uL (4.0-11.0) 9.1 x10^3/uL (4.0-11.0) Red Blood Count 5.24 x10^6/uL (4.30-5.70) 5.27 x10^6/uL (4.30-5.70) Hemoglobin 15.2 g/dL (13.0-17.5) 15.3 g/dL (13.0-17.5) Hematocrit 44.8 % (39.0-53.0) 45.1 % (39.0-53.0) Mean Corpuscular Volume 86 fL (79-100) 86 fL (79-100) Mean Corpuscular Hemoglobin 29 pg (25-35) 29 pg (25-35) Mean Corpuscular Hemoglobin Concent 34 g/dL (31-37) 34 g/dL (31-37) Red Cell Distribution Width 13.5 % (11.5-14.5) 13.6 % (11.5-14.5) Platelet Count 334 x10^3/uL (140-400) 343 x10^3/uL (140-400) Neutrophils (%) (Auto) 65 % (31-73) 53 % (31-73) Lymphocytes (%) (Auto) 19 % (24-48) 33 % (24-48) Monocytes (%) (Auto) 15 % (0-9) 12 % (0-9) Eosinophils (%) (Auto) 0 % (0-3) 1 % (0-3) Basophils (%) (Auto) 0 % (0-3) 1 % (0-3) Neutrophils # (Auto) 6.6 x10^3uL (1.8-7.7) 4.8 x10^3uL (1.8-7.7) Lymphocytes # (Auto) 1.9 x10^3/uL (1.0-4.8) 3.0 x10^3/uL (1.0-4.8) Monocytes # (Auto) 1.6 x10^3/uL (0.0-1.1) 1.1 x10^3/uL (0.0-1.1) Eosinophils # (Auto) 0.0 x10^3/uL (0.0-0.7) 0.1 x10^3/uL (0.0-0.7) Basophils # (Auto) 0.0 x10^3/uL (0.0-0.2) 0.1 x10^3/uL (0.0-0.2) Sodium Level 139 mmol/L (136-145) 139 mmol/L (136-145) Potassium Level 4.4 mmol/L (3.5-5.1) 3.7 mmol/L (3.5-5.1) Chloride Level 100 mmol/L (98-107) 100 mmol/L (98-107) Carbon Dioxide Level 32 mmol/L (21-32) 32 mmol/L (21-32) Anion Gap 7 (6-14) 7 (6-14) Blood Urea Nitrogen 10 mg/dL (8-26) 13 mg/dL (8-26) Creatinine 0.7 mg/dL (0.7-1.3) 0.7 mg/dL (0.7-1.3) Estimated GFR (Cockcroft-Gault) 143.8 143.8 Glucose Level 90 mg/dL (70-99) 97 mg/dL (70-99) Calcium Level 8.5 mg/dL (8.5-10.1) 9.2 mg/dL (8.5-10.1) Laboratory Tests Test 01/04/17 05:30 White Blood Count 9.1 x10^3/uL (4.0-11.0) Red Blood Count 5.27 x10^6/uL (4.30-5.70) Hemoglobin 15.3 g/dL (13.0-17.5) Hematocrit 45.1 % (39.0-53.0) Mean Corpuscular Volume 86 fL (79-100) Mean Corpuscular Hemoglobin 29 pg (25-35) Mean Corpuscular Hemoglobin Concent 34 g/dL (31-37) Red Cell Distribution Width 13.6 % (11.5-14.5) Platelet Count 343 x10^3/uL (140-400) Neutrophils (%) (Auto) 53 % (31-73) Lymphocytes (%) (Auto) 33 % (24-48) Monocytes (%) (Auto) 12 % (0-9) Eosinophils (%) (Auto) 1 % (0-3) Basophils (%) (Auto) 1 % (0-3) Neutrophils # (Auto) 4.8 x10^3uL (1.8-7.7) Lymphocytes # (Auto) 3.0 x10^3/uL (1.0-4.8) Monocytes # (Auto) 1.1 x10^3/uL (0.0-1.1) Eosinophils # (Auto) 0.1 x10^3/uL (0.0-0.7) Basophils # (Auto) 0.1 x10^3/uL (0.0-0.2) Sodium Level 139 mmol/L (136-145) Potassium Level 3.7 mmol/L (3.5-5.1) Chloride Level 100 mmol/L (98-107) Carbon Dioxide Level 32 mmol/L (21-32) Anion Gap 7 (6-14) Blood Urea Nitrogen 13 mg/dL (8-26) Creatinine 0.7 mg/dL (0.7-1.3) Estimated GFR (Cockcroft-Gault) 143.8 Glucose Level 97 mg/dL (70-99) Calcium Level 9.2 mg/dL (8.5-10.1) Microbiology 12/30/16 Blood Culture - Preliminary, Resulted NO GROWTH AFTER 4 DAYS 12/30/16 Gram Stain - Final, Complete 12/30/16 Throat Culture - Final, Complete 12/30/16 - Final, Complete 12/30/16 Gram Stain - Final, Complete Medications Current Medications Sodium Chloride 1,000 ml @ 0 mls/hr 1X ONCE IV Last administered on 16:10; Start 12/30/16 at 15:45; Stop 12/30/16 at 16:06; Status DC Sodium Chloride (Normal Saline Flush) 3 ml QSHIFT PRN IV AFTER MEDS AND BLOOD DRAWS; Start 12/30/16 at 15:45 Morphine Sulfate 2 mg 1X ONCE IV Last administered on 12/30/16 16:11; Start 12/30/16 at 15:45; Stop 12/30/16 at 16:06; Status DC Ondansetron HCl (Zofran) 4 mg PRN Q6HRS PRN IV NAUSEA/VOMITING Last administered on 12/30/16 16:10; Start 12/30/16 at 15:45; Stop 12/30/16 at 19:05 ; Status DC Ondansetron HCl (Zofran) 4 mg STK-MED ONCE .ROUTE ; Start 12/30/16 at 16:06; Stop 12/30/16 at 16:07; Status DC Morphine Sulfate 2 mg STK-MED ONCE .ROUTE ; Start 12/30/16 at 16:06; Stop at 16:07; Status DC Ceftriaxone Sodium 50 ml @ 100 mls/hr 1X ONCE IV Last administered on 17:46; Start 12/30/16 at 17:15; Stop 12/30/16 at 17:44; Status DC Vancomycin HCl 2 gm/Sodium Chloride 500 ml @ 250 mls/hr 1X ONCE IV Last administered on 12/30/16 21:09; Start 12/30/16 at 17:15; Stop 12/30/16 at 19:14 ; Status DC Sodium Chloride 1,000 ml @ 1,000 mls/hr 1X ONCE IV Last administered on 17:46; Start 12/30/16 at 17:30; Stop 12/30/16 at 18:29; Status DC Piperacillin Sod/ Tazobactam Sod 4.5 gm/Sodium Chloride 100 ml @ 200 mls/hr 1X ONCE IV Last administered on 12/30/16 18:18; Start 12/30/16 at 18:00; Stop 12/30/16 at 18:29; Status DC Vancomycin HCl (Vanco Per Pharmacy) 1 each PRN DAILY PRN MC SEE COMMENTS Last administered on 01/02/17 10:42; Start 12/30/16 at 18:00; Stop 01/03/17 at 10:04 ; Status DC Ondansetron HCl (Zofran) 4 mg PRN Q8HRS PRN IV NAUSEA/VOMITING; Start 12/30/16 at 18:00; Stop 12/31/16 at 13:16; Status DC Morphine Sulfate 2 mg PRN Q2HR PRN IV PAIN Last administered on 12/31/16 08:15 ; Start 12/30/16 at 18:00; Stop 12/31/16 at 08:38; Status DC Piperacillin Sod/ Tazobactam Sod 4.5 gm/Sodium Chloride 100 ml @ 200 mls/hr Q6HRS IV Last administered on 01/03/17 05:41; Start 12/31/16 at 00:00; Stop at 10:03; Status DC Acetaminophen (Tylenol) 325 mg PRN Q6HRS PRN PO MILD PAIN / TEMP Last administered on 12/31/16 23:07; Start 12/30/16 at 19:00; Stop 12/31/16 at 23:13 ; Status DC Acetaminophen/ Hydrocodone Bitart (Lortab 5/325) 1 tab PRN Q6HRS PRN PO MODERATE TO SEVERE PAIN Last administered on 01/02/17 05:55; Start 12/30/16 at 19:00; Stop 01/02/17 at 11:38; Status DC Hydralazine HCl (Apresoline) 10 mg PRN Q4HRS PRN IVP ELEVATED BP, SEE COMMENTS ; Start 12/30/16 at 19:00 Ondansetron HCl (Zofran) 4 mg PRN Q8HRS PRN IV NAUSEA/VOMITING Last administered on 12/31/16 16:31; Start 12/30/16 at 19:00 Albuterol Sulfate (Ventolin Neb Soln) 2.5 mg PRN Q4HRS PRN NEB SHORTNESS OF BREATH; Start 12/30/16 at 19:00 Hydromorphone HCl (Dilaudid) 1 mg 1X ONCE IM ; Start 12/30/16 at 19:30; Stop at 19:31; Status DC Vancomycin HCl 1.25 gm/Sodium Chloride 250 ml @ 167 mls/hr Q8H IV Last administered on 01/03/17 04:34; Start 12/31/16 at 04:00; Stop 01/03/17 at 10:03 ; Status DC Vancomycin HCl 1 each 1X ONCE MC Last administered on 12/31/16 19:30; Start 12/31/16 at 19:30; Stop 12/31/16 at 19:31; Status DC Sodium Chloride 1,000 ml @ 75 mls/hr [id number] IV Last administered on 00:18; Start 12/31/16 at 00:15; Stop 12/31/16 at 15:40; Status DC Lidocaine HCl (Viscous Lidocaine) 15 ml PRN Q4HRS PRN SWSW MOUTH PAIN Last administered on 12/31/16 02:01; Start 12/31/16 at 01:30 Hydromorphone HCl (Dilaudid) 0.5 mg PRN Q2HRS PRN IV PAIN Last administered on 12/31/16 14:55; Start 12/31/16 at 08:45; Stop 12/31/16 at 16:05; Status DC Acetaminophen (Acetaminophen Supp) 650 mg PRN Q6HRS PRN [place] MILD PAIN / TEMP; Start 12/31/16 at 08:45 Potassium Chloride 40 meq/ Dextrose 1,020 ml @ 75 mls/hr 1X ONCE IV Last administered on 12/31/16 12:30; Start 12/31/16 at 12:00; Stop 01/01/17 at 01:35 ; Status DC Hydromorphone HCl (Dilaudid) 1 mg PRN Q2HR PRN IV PAIN Last administered on 08:52; Start 12/31/16 at 16:00; Stop 01/02/17 at 11:01; Status DC Amino Acids/ Glycerin/ Electrolytes 1,000 ml @ 80 mls/hr [id number] IV Last administered on 01/03/17 18:22; Start 12/31/16 at 16:30 Valacyclovir HCl (Valtrex) 1,000 mg TID PO Last administered on 01/03/17 09:27 ; Start 12/31/16 at 16:30; Stop 01/03/17 at 09:46; Status DC Acetaminophen (Tylenol) 650 mg PRN Q6HRS PRN PO MILD PAIN / TEMP Last administered on 01/01/17 21:29; Start 12/31/16 at 23:15 Acetaminophen (Tylenol) 325 mg 1X ONCE PO Last administered on 12/31/16 23:19 ; Start 12/31/16 at 23:30; Stop 12/31/16 at 23:31; Status DC Dextrose/Sodium Chloride 1,000 ml @ 40 mls/hr Q24H IV Last administered on 01:16; Start 01/01/17 at 11:00 Guaifenesin (Mucinex) 600 mg BID PO Last administered on 01/04/17 08:09; Start 01/01/17 at 13:00 Throat Lozenges (Chloraseptic) 1 spray PRN Q2HR PRN PO SORE THROAT Last administered on 01/01/17 14:43; Start 01/01/17 at 12:30 Fentanyl (Duragesic 25mcg/ Hr Patch) 1 patch Q3DAYS TD Last administered on 14:56; Start 01/01/17 at 15:30; Stop 01/02/17 at 10:54; Status DC Pantoprazole Sodium (Protonix Vial) 40 mg DAILYAC IVP Last administered on 01/04 08:07; Start 01/01/17 at 15:30 Potassium Chloride 100 ml @ 100 mls/hr Q1H IV Last administered on 01/02/17 16:15; Start 01/02/17 at 10:00; Stop 01/02/17 at 11:59; Status DC Fentanyl (Duragesic 25mcg/ Hr Patch) 1 patch Q3DAYS TD Last administered on 12:02; Start 01/02/17 at 11:00 Hydromorphone HCl (Dilaudid) 2 mg PRN Q3HRS PRN IV PAIN; Start 01/02/17 at 16: 00; Stop 01/02/17 at 16:00; Status DC Throat Lozenges (Cepacol Sore Throat Lozenge) 1 sonya PRN Q2HRS PRN PO SORE THROAT; Start 01/02/17 at 11:00 Hydromorphone HCl (Dilaudid) 2 mg PRN Q3HRS PRN IV PAIN Last administered on 07:28; Start 01/02/17 at 11:00 Oxycodone/ Acetaminophen (Percocet 5/325) 1 tab PRN Q4HRS PRN PO PAIN Last administered on 01/03/17 09:28; Start 01/02/17 at 11:45 Prednisone (Prednisone) 30 mg DAILY PO Last administered on 01/04/17 08:09; Start 01/02/17 at 13:00 Pantoprazole Sodium (Protonix Vial) 40 mg DAILYAC IVP ; Start 01/03/17 at 08:45 ; Status UNV Enoxaparin Sodium (Lovenox 40mg Syringe) 40 mg Q24H SQ ; Start 01/03/17 at 09:00 Neomycin/ Polymyxin/ Bacitracin (Triple Antibiotic Ointment) 1 pkt DAILY TP Last administered on 01/04/17 08:12; Start 01/04/17 at 09:00 Active Scripts Active Reported Metronidazole 500 Mg Tablet 1 Tab PO BID Valtrex (Valacyclovir Hcl) 1,000 Mg Tablet 1 Tab PO Q8HRS Doxycycline Hyclate 100 Mg Capsule 1 Cap PO BID Vitals/I & O Vital Sign - Last 24 Hours 01/03/17 01/03/17 01/03/17 01/03/17 09:23 09:28 10:30 11:00 Temp 97.7 97.7 Pulse 92 Resp 18 B/P (MAP) 126/87 (100) Pulse Ox 96 O2 Delivery Room Air Room Air Room Air Room Air 01/03/17 01/03/17 01/03/17 01/03/17 12:49 15:00 15:55 18:57 Temp 97.5 97.5 Pulse 60 Resp 18 B/P (MAP) 133/87 (102) Pulse Ox 98 O2 Delivery Room Air Room Air Room Air Room Air 01/03/17 01/03/17 01/03/17 01/03/17 19:00 20:00 21:57 22:27 Temp 98.2 98.2 Pulse 72 Resp 18 B/P (MAP) 129/75 (93) Pulse Ox 93 O2 Delivery Room Air Room Air Room Air Room Air 01/03/17 01/04/17 01/04/17 01/04/17 23:00 01:10 02:47 04:24 Temp 97.9 97.7 97.9 97.7 Pulse 75 77 Resp 18 18 B/P (MAP) 124/70 (88) 137/78 (97) Pulse Ox 96 96 O2 Delivery Room Air Room Air Room Air Room Air 01/04/17 01/04/17 07:00 07:28 Temp 97.7 97.7 Pulse 66 Resp 18 B/P (MAP) 130/85 (100) Pulse Ox 97 O2 Delivery Room Air Room Air Intake and Output 01/03/17 01/03/17 01/04/17 15:00 23:00 07:00 Output Total 550 ml Balance -550 ml ANJELICA SUNG MD Jan 04, 2017 09:01
[2017-01-04 11:00] VITALS: BP 145/78
[2017-01-04 15:00] VITALS: BP 142/78
[2017-01-04] MEDS: AMINO AC 3%/ELECTROLYTE/GLYCER 1,000 ML IV SCH ×2 (16:31→20:30)
[2017-01-04 19:00] VITALS: BP 136/89
[2017-01-04 23:00] VITALS: BP 135/81
[2017-01-05] MEDS: HYDROmorphone 2 MG/ML VIAL IV PRN ×3 (02:55→12:10)
[2017-01-05] MEDS: AMINO AC 3%/ELECTROLYTE/GLYCER 1,000 ML IV SCH (02:55)
[2017-01-05 02:57] VITALS: BP 141/79
[2017-01-05 05:25] LABS: BASO # 0.1 x10^3/uL (0.0-0.2); BASO % 1 % (0-3); EOS % 1 % (0-3); HEMATOCRIT 45.2 % (39.0-53.0); HEMOGLOBIN 15.3 g/dL (13.0-17.5); LYMPH # 3.4 x10^3/uL (1.0-4.8); LYMPH % 33 % (24-48); MEAN CORPUSCULAR HEMOGLOBIN 29 pg (25-35); MEAN CORPUSCULAR HGB CONC 34 g/dL (31-37); MEAN CORPUSCULAR VOLUME 85 fL (79-100); MONO % 11 % (0-9); NEUT % 54 % (31-73); PLATELET COUNT 384 x10^3/uL (140-400); RED BLOOD COUNT 5.31 x10^6/uL (4.30-5.70); RED CELL DISTRIBUTION WIDTH 13.8 % (11.5-14.5); WHITE BLOOD COUNT 10.2 x10^3/uL (4.0-11.0)
[2017-01-05 05:43] LABS: CALCIUM 8.9 mg/dL (8.5-10.1); CREATININE 0.7 mg/dL (0.7-1.3); GFR 143.8; POTASSIUM 3.5 mmol/L (3.5-5.1)
[2017-01-05 07:00] VITALS: BP 122/71
[2017-01-05 07:14] LABS: % BASOS 1 % (0-3); PLT ESTIMATE ADEQUATE (ADEQUATE)
[2017-01-05] MEDS ORDERED: PANTOPRAZOLE 40 MG TABLET.DR. PO SCH (07:30)
[2017-01-05] MEDS: predniSONE 10 MG TABLET PO SCH (08:52)
[2017-01-05] MEDS: NEOMY/BACITR/POLYMYXIN OINT PACKET. TP SCH (08:53)
[2017-01-05] MEDS: ENOXAPARIN 40 MG/0.4 ML SYRINGE. SQ SCH (08:53)
[2017-01-05] MEDS: fentaNYL 25MCG/HR PATCH 1 PATCH PATCH.TD72 TD SCH (08:54)
--- NOTE | 2017-01-05 09:05 | PDOC ---
Infectious Disease Note Subjective Subjective feeling better ROS ROS GEN: Denies fevers, chills, sweats HEENT: Denies blurred vision, sore throat CV: Denies chest pain RESP: Denies shortness of air, cough GI: Denies n/v/d NEURO: Denies confusion, dizziness MSK: Denies weakness, joint pain/swelling Vital Sign Vital Signs Vital Signs Date Time Temp Pulse Resp B/P (MAP) Pulse Ox O2 Delivery O2 Flow Rate FiO2 01/05/17 09:00 Room Air 01/05/17 07:00 97.7 75 20 122/71 (88) 98 97.7 Physical Exam PHYSICAL EXAM GENERAL: NAD, Alert HEENT: PERRL, OC/OP NECK: Supple, no JVD, no LN LUNGS: Clear HEART: S1S2, no gallop, no murmur ABD: Soft, NT, no organomegaly, no rebound EXT: No edema, no cyanosis JUNIOR DATABASE ADMINISTRATOR: Alert, oriented x 3, no focal neurologic deficit SKIN: No rash IV: ok Labs Lab Laboratory Tests Test 01/05/17 04:20 White Blood Count 10.2 x10^3/uL (4.0-11.0) Red Blood Count 5.31 x10^6/uL (4.30-5.70) Hemoglobin 15.3 g/dL (13.0-17.5) Hematocrit 45.2 % (39.0-53.0) Mean Corpuscular Volume 85 fL (79-100) Mean Corpuscular Hemoglobin 29 pg (25-35) Mean Corpuscular Hemoglobin Concent 34 g/dL (31-37) Red Cell Distribution Width 13.8 % (11.5-14.5) Platelet Count 384 x10^3/uL (140-400) Neutrophils (%) (Auto) 54 % (31-73) Lymphocytes (%) (Auto) 33 % (24-48) Monocytes (%) (Auto) 11 % (0-9) Eosinophils (%) (Auto) 1 % (0-3) Basophils (%) (Auto) 1 % (0-3) Neutrophils # (Auto) 5.5 x10^3uL (1.8-7.7) Lymphocytes # (Auto) 3.4 x10^3/uL (1.0-4.8) Monocytes # (Auto) 1.1 x10^3/uL (0.0-1.1) Eosinophils # (Auto) 0.1 x10^3/uL (0.0-0.7) Basophils # (Auto) 0.1 x10^3/uL (0.0-0.2) Segmented Neutrophils % 61 % (35-66) Band Neutrophils % 4 % (0-9) Lymphocytes % 24 % (24-48) Atypical Lymphocytes % (Manual) 2 % (0-0) Monocytes % 8 % (0-10) Basophils % 1 % (0-3) Platelet Estimate Adequate (ADEQUATE) Sodium Level 138 mmol/L (136-145) Potassium Level 3.5 mmol/L (3.5-5.1) Chloride Level 99 mmol/L (98-107) Carbon Dioxide Level 31 mmol/L (21-32) Anion Gap 8 (6-14) Blood Urea Nitrogen 12 mg/dL (8-26) Creatinine 0.7 mg/dL (0.7-1.3) Estimated GFR (Cockcroft-Gault) 143.8 Glucose Level 90 mg/dL (70-99) Calcium Level 8.9 mg/dL (8.5-10.1) Micro all cultures neg Objective Assessment Fever Leukocytosis Lactic acidosis, better Ulcerations of glans penis Eschar wounds of scrotum and left thigh, now new lesions developing on back and legs Ulcers oral cavity & pharynx ? autoimmune vs viral Plan Plan of Care HSV PCR and cultures neg urine chlamydia and gonorrhea neg Reportedly HIV status neg, donates plasma. Monitor labs cont steroids Derm input appreciated d/w dr Mchugh d[facility] [place] [facility] Jan 05, 2017 09:05
[2017-01-05] MEDS ORDERED: OXYC-323 PO (10:56)
[2017-01-05 11:00] VITALS: BP 116/77
--- NOTE | 2017-01-05 11:00 | PDOC3 ---
Discharge Summary Visit Information Date of Admission: Dec 30, 2016 Date of Discharge: Jan 05, 2017 Final Diagnosis Problems Medical Problems: (1) Cellulitis of scrotum Status: Acute (2) Herpes genitalia Status: Acute (3) Leukocytosis Status: Acute Brief Hospital Course Allergies Allergies Coded Allergies Type Severity Reaction Last Updated Verified No Known Drug Allergies 12/30/16 No Vital Signs Vital Signs Date Time Temp Pulse Resp B/P (MAP) Pulse Ox O2 Delivery O2 Flow Rate FiO2 01/05/17 09:54 Room Air 01/05/17 07:00 97.7 75 20 122/71 (88) 98 97.7 Lab Results Laboratory Tests Test 01/04/17 05:30 01/05/17 04:20 White Blood Count 9.1 x10^3/uL (4.0-11.0) 10.2 x10^3/uL (4.0-11.0) Red Blood Count 5.27 x10^6/uL (4.30-5.70) 5.31 x10^6/uL (4.30-5.70) Hemoglobin 15.3 g/dL (13.0-17.5) 15.3 g/dL (13.0-17.5) Hematocrit 45.1 % (39.0-53.0) 45.2 % (39.0-53.0) Mean Corpuscular Volume 86 fL (79-100) 85 fL (79-100) Mean Corpuscular Hemoglobin 29 pg (25-35) 29 pg (25-35) Mean Corpuscular Hemoglobin Concent 34 g/dL (31-37) 34 g/dL (31-37) Red Cell Distribution Width 13.6 % (11.5-14.5) 13.8 % (11.5-14.5) Platelet Count 343 x10^3/uL (140-400) 384 x10^3/uL (140-400) Neutrophils (%) (Auto) 53 % (31-73) 54 % (31-73) Lymphocytes (%) (Auto) 33 % (24-48) 33 % (24-48) Monocytes (%) (Auto) 12 % (0-9) 11 % (0-9) Eosinophils (%) (Auto) 1 % (0-3) 1 % (0-3) Basophils (%) (Auto) 1 % (0-3) 1 % (0-3) Neutrophils # (Auto) 4.8 x10^3uL (1.8-7.7) 5.5 x10^3uL (1.8-7.7) Lymphocytes # (Auto) 3.0 x10^3/uL (1.0-4.8) 3.4 x10^3/uL (1.0-4.8) Monocytes # (Auto) 1.1 x10^3/uL (0.0-1.1) 1.1 x10^3/uL (0.0-1.1) Eosinophils # (Auto) 0.1 x10^3/uL (0.0-0.7) 0.1 x10^3/uL (0.0-0.7) Basophils # (Auto) 0.1 x10^3/uL (0.0-0.2) 0.1 x10^3/uL (0.0-0.2) Sodium Level 139 mmol/L (136-145) 138 mmol/L (136-145) Potassium Level 3.7 mmol/L (3.5-5.1) 3.5 mmol/L (3.5-5.1) Chloride Level 100 mmol/L (98-107) 99 mmol/L (98-107) Carbon Dioxide Level 32 mmol/L (21-32) 31 mmol/L (21-32) Anion Gap 7 (6-14) 8 (6-14) Blood Urea Nitrogen 13 mg/dL (8-26) 12 mg/dL (8-26) Creatinine 0.7 mg/dL (0.7-1.3) 0.7 mg/dL (0.7-1.3) Estimated GFR (Cockcroft-Gault) 143.8 143.8 Glucose Level 97 mg/dL (70-99) 90 mg/dL (70-99) Calcium Level 9.2 mg/dL (8.5-10.1) 8.9 mg/dL (8.5-10.1) Segmented Neutrophils % 61 % (35-66) Band Neutrophils % 4 % (0-9) Lymphocytes % 24 % (24-48) Atypical Lymphocytes % (Manual) 2 % (0-0) Monocytes % 8 % (0-10) Basophils % 1 % (0-3) Platelet Estimate Adequate (ADEQUATE) Laboratory Tests Test 01/05/17 04:20 White Blood Count 10.2 x10^3/uL (4.0-11.0) Red Blood Count 5.31 x10^6/uL (4.30-5.70) Hemoglobin 15.3 g/dL (13.0-17.5) Hematocrit 45.2 % (39.0-53.0) Mean Corpuscular Volume 85 fL (79-100) Mean Corpuscular Hemoglobin 29 pg (25-35) Mean Corpuscular Hemoglobin Concent 34 g/dL (31-37) Red Cell Distribution Width 13.8 % (11.5-14.5) Platelet Count 384 x10^3/uL (140-400) Neutrophils (%) (Auto) 54 % (31-73) Lymphocytes (%) (Auto) 33 % (24-48) Monocytes (%) (Auto) 11 % (0-9) Eosinophils (%) (Auto) 1 % (0-3) Basophils (%) (Auto) 1 % (0-3) Neutrophils # (Auto) 5.5 x10^3uL (1.8-7.7) Lymphocytes # (Auto) 3.4 x10^3/uL (1.0-4.8) Monocytes # (Auto) 1.1 x10^3/uL (0.0-1.1) Eosinophils # (Auto) 0.1 x10^3/uL (0.0-0.7) Basophils # (Auto) 0.1 x10^3/uL (0.0-0.2) Segmented Neutrophils % 61 % (35-66) Band Neutrophils % 4 % (0-9) Lymphocytes % 24 % (24-48) Atypical Lymphocytes % (Manual) 2 % (0-0) Monocytes % 8 % (0-10) Basophils % 1 % (0-3) Platelet Estimate Adequate (ADEQUATE) Sodium Level 138 mmol/L (136-145) Potassium Level 3.5 mmol/L (3.5-5.1) Chloride Level 99 mmol/L (98-107) Carbon Dioxide Level 31 mmol/L (21-32) Anion Gap 8 (6-14) Blood Urea Nitrogen 12 mg/dL (8-26) Creatinine 0.7 mg/dL (0.7-1.3) Estimated GFR (Cockcroft-Gault) 143.8 Glucose Level 90 mg/dL (70-99) Calcium Level 8.9 mg/dL (8.5-10.1) Brief Hospital Course Mr. Doyle is a 21 old male, rather interesting case. Presented with painful penile ulcers and mouth ulcers that looked like classic HSV lesions but PCR was neg, CO managed with ID. EVentually needed to call dermatology and had skin biopsy taken, ALso needed rheum re concerns for Behcet' s but there was absence of chronic prodrome sxs. STarted on pred 30 PO qD and lesions got better, PT seen and examined, UPdated mom. RX written, REquests for pain meds, COunselling done. time > 50% Dc 32 mins COnsultsL:ID,derm, rheum Proc; Skin biopsy DispO; home Discharge Information Condition at Discharge: Improved, Stable Follow Up: Weeks ([place] tology 2 -4 weeks re biopsy results) Disposition/Orders: D/C to Home Scheduled Doxycycline Hyclate (Doxycycline Hyclate), 1 CAP PO BID, (Reported) Metronidazole (Metronidazole), 1 TAB PO BID, (Reported) Valacyclovir Hcl (Valtrex), 1 TAB PO Q8HRS, (Reported) KEON MARTINEZ MD Jan 05, 2017 11:00
[2017-01-05] MEDS: oxyCODONE/APAP 5/325 1 TAB TABLET PO PRN (14:51)
[2017-01-06 06:23] LABS: RPR REFLEX Non Reactive (Non Reactive)
--- NOTE | 2017-01-06 15:45 | PATHOLOGY ---
PATHOLOGY REPORT * * * * * * * * FINAL DIAGNOSIS: Skin, left thigh, punch biopsy: - Extensive ulceration with superficial and deep perivascular and interstitial inflammation (see comment). COMMENT: The biopsy is extensively ulcerated without the presence of any viable epidermis for review. Beneath the ulcer base, the entire thickness of the biopsy is inflamed with lymphocytes, histocytes, numerous neutrophils and scattered eosinophils. Due to the abundant neutrophilic inflammation within the dermis, a number of special stains were performed, with appropriate positive controls, which yielded the following results: AFB: Negative PAS-DF for fungus: Negative. Focal leukocytoclastic vasculitis is present within superficial dermal blood vessels which raises the possibility that this represents an ulcerated lesion of a primary leukocytoclastic vasculitis; however, with the extensive ulceration, this is difficult to separate out from secondary leukocytoclastic vasculitis due to the overlying ulcer. Similar histology can be seen in both primary and secondary lesions. As no viable epidermis is available for review, one cannot evaluate for the presence of viral inclusions or for an autoimmune disorder. Again, the findings may be due to an ulcerated leukocytoclastic vasculitis versus acute ulceration with secondary findings of a leukocytoclastic vasculitis versus an ulcerated neutrophilic dermatitis, pyoderma gangrenosum or an infectious etiology. Please correlate clinically. REPORT ELECTRONICALLY SIGNED BY: Prema Kendrick M.D., Dermatopathologist DATE/TIME: 01/06/2017 15:44 * * * * * * * * MICROSCOPIC DESCRIPTION: Multiple levels of an un-sectioned punch biopsy of skin show complete epidermal ulceration. Neutrophils and fibrin are seen at the surface of the biopsy and extends into the underlying superficial papillary dermis. There is a marked superficial and deep perivascular and interstitial lymphohistiocytic inflammatory cell infiltrate with neutrophils and scattered eosinophils. Focally, superficial vessels show fibrin thrombi or perivascular deposits of fibrin. (SAS:pit; d/t: 01/06/2017) GROSS PATHOLOGY: Received in formalin labeled "Leigh Doyle, left thigh," is a punch biopsy measuring 0.8 x 0.3 x 0.3 cm in greatest dimensions. The epidermal surface is arriaza medellin, scaly and somewhat friable. The margin is inked, and the specimen is entirely submitted in cassette A1. ([facility]; 01/04/17) INITIAL CPT CODE(S): A; 86427, 05542, 15710 Professional services performed by [employer], [facility] [place] [address]. Technical services performed by [employer] at [address] [place] [address]. SPECIMEN(S) RECEIVED: A.Left thigh punch biopsy CLINICAL HISTORY: Patient acute illness with oral and genital erosions, purpuric lesions legs, face and scrotum, HSV negative, ? enterovirus infection, legs look like LCV, hypersensitivity vasculitis PATIENT: LEIGH DOYLE /AGE: 702/01/1995 (Age: 21) PATIENT #: [id number] ALT CASE #: SPECIMEN COLLECTION DATE: 01/03/2017 SPECIMEN RECEIVED DATE: 01/04/2017 [facility] - [id number] [place] [id number] - PHONE: [phone] * * * END OF REPORT * * *
== END 2017-01-05 15:00 | disposition home or self-care (01) | DRG 729 ==
LOC: ER 15:17 → 4 NORTH 17:47
PROVIDERS: ADMIT Internal Medicine; ATTEND Internal Medicine
PROC: 0HBJXZX Excision of Left Upper Leg Skin, External Approach, Diagnostic (ICD-10-PCS; principal; 2017-01-03)
DX: N48.5 Ulcer of penis (principal); E87.2 Acidosis; K12.30 Oral mucositis (ulcerative), unspecified; A60.00 Herpesviral infection of urogenital system, unspecified; E16.2 Hypoglycemia, unspecified; E86.0 Dehydration; E87.6 Hypokalemia; N49.2 Inflammatory disorders of scrotum; F12.90 Cannabis use, unspecified, uncomplicated; J02.9 Acute pharyngitis, unspecified; M06.4 Inflammatory polyarthropathy
CPT/HCPCS: 36415; 71010; 71020; 80048; 80053; 80202; 81001; 83605; 85007; 85027; 86593; 87040; 87070; 87205; 87491; 87529; 87591; 87880; 88305; 88312; 96361; 96365; 96368; 96375; C9113; J0690; J1170; J2270; J2405; J2543; J3370; J3480; J7030; J7040; J7042; J7050; J7512; 97116; 97530; 97535; 99285-25